=== PATIENT | female | born 1965 | race African-American/Black ===

== ENCOUNTER 2020-02-11 02:03 | Emergency (ER) | payer MEDICARE, MEDICAID, SELFPAY ==
[2020-02-11 02:06] VITALS: BP 144/81; PULSE 70; RESP 18; TEMP 36.8; O2SAT 100; BMI 26.6
[2020-02-11] MEDS: 0.9% Normal Saline 1,000 ML 1000 ML IV (02:19)
[2020-02-11] MEDS: Ondansetron 4 MG/2 ML Vial IV (02:22)
[2020-02-11] MEDS: Morphine 4 MG/ML Syringe IV (02:22)
[2020-02-11 02:39] LABS: Absolute Lymphocyte Count 1.89 X10^3/uL (0.83-4.51); Absolute Neutrophil Count 6.3 X10^3/uL (2.0-7.7); Basophil# 0.02 X10^3/uL; Basophil% 0.2 % (0-1); Eosinophil# 0.08 X10^3/uL; Eosinophils% 0.9 % (0-5); Hematocrit 39.7 % (37-47); Hemoglobin 12.8 g/dL (12.0-15.0); Lymphocyte # 1.89 X10^3/ul (4.0); Lymphocyte % 21.6 % (19-41); Mean Corp Hgb Conc 32.2 g/dL (32-36); Mean Corpuscular Hgb 30.8 pg (27.0-32.0); Mean Corpuscular Volume 95.7 fL (81-99); Mean Platelet Vol. 9.1 fl (6.2-12.0); Monocyte# 0.46 X10^3/uL; Monocyte% 5.3 % (0-10); NRBC Flagged by Analyzer 0 % (0-5); Neutrophil # 6.28 X10^3/uL (2.7-7.7); Neutrophil % 71.7 % (47-70); Platelet Count 265 K/mm3 (150-450); RBC Distribution Width CV 13.2 % (11.6-14.6); Red Blood Count 4.15 M/mm3 (4.2-5.4); White Blood Count 8.8 K/mm3 (4.4-11.0)
[2020-02-11 02:42] LABS: ALB/GLOB Ratio 1.1 RATIO (0.9-2.4); AST(SGOT) 19 U/L (15-37); Alanine Aminotransfer ALT/SGPT 20 U/L (13-56); Albumin, Serum 3.8 g/dL (3.2-5.0); Alkaline Phosphatase 67 U/L (45-117); Anion Gap 7 (5-15); BUN 9 mg/dL (7-18); BUN/Creat Ratio 10.4 RATIO (10-20); Calcium,Total 8.6 mg/dL (8.5-10.1); Chloride 108 mmol/L (98-107); Creatinine, Serum 0.86 mg/dL (0.55-1.02); EST Glomerular Filtration Rate 73 mL/min (>60); Est Glom Filt Rate - Afr Amer 88 mL/min (>60); Estimated Creatinine Clearance 78.15 ml/min; Globulin 3.5 g/dL (2.2-4.2); Glucose 93 mg/dL (74-106); Lipase 348 U/L (73-393); Potassium 3.9 mmol/L (3.5-5.1); Protein, Total 7.3 g/dL (6.4-8.2); Sodium Level 140 mmol/L (136-145)
--- NOTE | 2020-02-11 02:48 | ED.DCSUM_ITS ---
- ER Visit Summary Date of Service: 02/11/20 Chief Complaint: Abdominal pain History of Present Illness: The patient is a [address] bowen to. She reports that approximately 2 hours ago she developed abdominal pain, vomiting, and diarrhea. States she is vomited 7-8 times. No blood in her emesis. She had one episode of diarrhea. No blood in her stools or black tarry stools. She reports that she has a diffuse sharp abdominal pain 8/10 severity. Is worsened by sitting up and by vomiting. She reports that her grandson was visiting yesterday and that he has been vomiting as well. Has not been camping out of the country. No possible bad food exposure. Does not drink well water. No recent antibiotic use. Physical Examination: Vitals: Stable. Afebrile. General: Well-nourished and well-developed. Head: Normocephalic atraumatic. Neck: Supple, no lymphadenopathy. No JVD. Nontender. Cardiovascular: Regular rate and rhythm. No murmurs. Respiratory: No respiratory distress. Clear to auscultation bilaterally. Abdominal: Soft, mild diffuse tenderness palpation, nondistended, normal bowel sounds. No guarding, rebound, or peritoneal signs. Back: Nontender. Extremities: Nontender, no edema. Skin: Normal color, no rash. Neurologic: Alert and oriented ?3. Cranial nerves II through XII are intact. Normal strength and sensation. Psych: Normal affect. Test Results: CBC shows 7 neutrophils 72. Chem-7 shows a chloride of 108. LFTs are normal. Lipase is normal. Emergency Department Course and Treatment: Patient was given a dose of morphine and Zofran IV. She was given a liter normal saline. She has not vomited since the Zofran. Treatment Plan: Patient be discharged with Zofran and Bentyl. Instructed to follow-up with her primary care physician 1 to 2 days if not improving. Return to the emergency department for any worsening symptoms. Disposition: To home in improved and stable condition. Impression: 1. Vomiting/diarrhea. This note was generated with [employer] dictation software. It may contain incorrect words, spelling, and punctuation that were not noted in review of the chart prior to signing ED Disposition - Plan for ED Patient: Instructions: ED Vomiting and Diarrhea Nonspecific Adult Prescriptions: Dicyclomine HCl [Bentyl] 20 mg PO TIDAC #20 capsule Ondansetron [Zofran Odt] 4 mg PO Q8H PRN PRN #10 tablet PRN Reason: Nausea Referrals: Jennifer Jones MD [Primary Care Provider] - 1-2 Days if not improving
[2020-02-11 03:58] VITALS: BP 124/68; PULSE 72; RESP 16; O2SAT 97
== END 2020-02-11 03:58 | disposition home or self-care (01) ==
PROVIDERS: Emergency Provider Emergency Medicine; PCP Internal Medicine
DX: R11.2 Nausea with vomiting, unspecified (principal); R19.7 Diarrhea, unspecified; M19.90 Unspecified osteoarthritis, unspecified site; Z72.0 Tobacco use
CPT/HCPCS: 80053; 83690; 85025; 96361; 96374; 96375; 99285; J7030; J2405

== ENCOUNTER 2020-07-24 19:07 | Emergency (ER) | payer MEDICARE, MEDICAID, SELFPAY ==
[2020-07-24 19:08] VITALS: BP 131/82; PULSE 72; RESP 18; TEMP 36.2; O2SAT 100; BMI 28.8
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
--- NOTE | 2020-07-24 19:17 | EKG12_ITS ---
Test Reason : DYSRHYTHMIA Blood Pressure : / mmHG Vent. Rate : 062 BPM Atrial Rate : 062 BPM P-R Int : 172 ms QRS Dur : 090 ms QT Int : 422 ms P-R-T Axes : 071 048 055 degrees QTc Int : 428 ms Normal sinus rhythm Normal ECG Confirmed by DALY BENITEZ, ELBA ([id number]), general expeditor KAREN THORNTON ([id number]) on 07/28/2020 12:56:28 PM Referred By: ABBY Confirmed By:ELBA KAUFFMAN MD
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
[2020-07-24] MEDS: 0.9% Normal Saline 1,000 ML 150 ML IV (19:31)
[2020-07-24 19:43] LABS: Anion Gap 4 (5-15); BUN 15 mg/dL (7-18); BUN/Creat Ratio 16.1 RATIO (10-20); Calcium,Total 8.7 mg/dL (8.5-10.1); Chloride 106 mmol/L (98-107); Creatinine, Serum 0.93 mg/dL (0.55-1.02); EST Glomerular Filtration Rate 66 mL/min (>60); Est Glom Filt Rate - Afr Amer 80 mL/min (>60); Estimated Creatinine Clearance 68.95 ml/min; Glucose 81 mg/dL (74-106); Sodium Level 140 mmol/L (136-145)
[2020-07-24 20:10] LABS: Absolute Lymphocyte Count 3.76 X10^3/uL (0.83-4.51); Basophil# 0.02 X10^3/uL; Basophil% 0.3 % (0-1); Eosinophil# 0.23 X10^3/uL; Erythrocyte Sedimentation Rate 25 mm/hr (0-30); Hematocrit 38.1 % (37-47); Hemoglobin 12.3 g/dL (12.0-15.0); Lymphocyte # 3.76 X10^3/ul (4.0); Lymphocyte % 49.6 % (19-41); Mean Corp Hgb Conc 32.3 g/dL (32-36); Mean Corpuscular Hgb 31.1 pg (27.0-32.0); Mean Corpuscular Volume 96.2 fL (81-99); Mean Platelet Vol. 9.2 fl (6.2-12.0); Monocyte# 0.51 X10^3/uL; Monocyte% 6.7 % (0-10); NRBC Flagged by Analyzer 0 % (0-5); Neutrophil # 3.04 X10^3/uL (2.7-7.7); Neutrophil % 40.1 % (47-70); Platelet Count 303 K/mm3 (150-450); RBC Distribution Width CV 13.1 % (11.6-14.6); RBC Distribution Width SD 46.6 fl (35.1-43.9); Red Blood Count 3.96 M/mm3 (4.2-5.4); White Blood Count 7.6 K/mm3 (4.4-11.0)
[2020-07-24 21:17] VITALS: BP 130/75; PULSE 56; RESP 16; O2SAT 99
[2020-07-24 22:26] VITALS: BP 140/61; PULSE 64; RESP 18; O2SAT 99
== END 2020-07-24 22:27 | disposition home or self-care (01) ==
PROVIDERS: Emergency Provider Emergency Medicine; PCP Internal Medicine
DX: R42 Dizziness and giddiness (principal); R51 Headache; R55 Syncope and collapse; F25.9 Schizoaffective disorder, unspecified; F17.200 Nicotine dependence, unspecified, uncomplicated; Z79.899 Other long term (current) drug therapy
CPT/HCPCS: 70450; 70498; 80048; 85025; 85652; 93005; 96360; 96361; 99284; J7030; Q9967; A4216

== ENCOUNTER 2020-11-14 05:08 | Emergency (ER) | payer MEDICARE, MEDICAID, SELFPAY ==
[2020-11-14 05:08] VITALS: BP 136/84; PULSE 54; RESP 24; TEMP 35.9; O2SAT 97; BMI 32.4
[2020-11-14 05:17] VITALS: O2SAT 97
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
[2020-11-14 06:30] VITALS: BP 118/74; PULSE 62; RESP 15; O2SAT 98
== END 2020-11-14 07:03 | disposition home or self-care (01) ==
PROVIDERS: Emergency Provider Emergency Medicine; PCP Internal Medicine
DX: S10.91XA Abrasion of unspecified part of neck, initial encounter (principal); S60.419A Abrasion of unspecified finger, initial encounter; G40.909 Epilepsy, unspecified, not intractable, without status epilepticus; F25.9 Schizoaffective disorder, unspecified; Z79.899 Other long term (current) drug therapy; F17.200 Nicotine dependence, unspecified, uncomplicated; V47.0XXA Car driver injured in collision with fixed or stationary object in nontraffic accident, initial encounter; Y93.I9 Activity, other involving external motion; Y92.410 Unspecified street and highway as the place of occurrence of the external cause; Y99.8 Other external cause status
CPT/HCPCS: 70450; 72125; 99284

== ENCOUNTER 2021-10-30 22:20 | Observation (INO) | payer MEDICARE, MEDICAID, SELFPAY ==
[2021-10-30 22:22] VITALS: BP 148/80; PULSE 55; RESP 18; TEMP 36.1; O2SAT 96; BMI 33.6
[2021-10-30 22:30] LABS: Bedside Glucose 166 mg/dL (70-110)
--- NOTE | 2021-10-30 22:31 | CT_ITS ---
EXAM: CT HEAD WITHOUT INTRAVENOUS CONTRAST CLINICAL INDICATION: Weakness TECHNIQUE: Multiple axial images were obtained of the head without intravenous contrast. CTDIvol = ( 44.99 ) mGy, DLP = ( 745.49 ) mGycm This CT exam was performed using one or more of the following dose reduction techniques: automated exposure control, adjustment of the mA and/or kV according to patient size, and/or use of iterative reconstruction technique. This report was created using [employer] report generation technology. COMPARISON: None. FINDINGS: BRAIN AND EXTRA-AXIAL SPACES: Unremarkable. No intra- or extra-axial hemorrhage. No evidence of acute infarct. No intracranial mass or mass effect. There is preservation of the way/white matter interface. Posterior fossa structures are unremarkable. Ventricles are appropriate for age. No hydrocephalus. Basal cisterns are patent. BONES/JOINTS: Unremarkable. No discrete lytic or blastic abnormalities. SINUSES: Mild scattered paranasal sinus mucosal thickening. MASTOID AIR CELLS: Unremarkable. Clear. ORBITS: Visualized globes, extraocular muscles, optic nerves and retrobulbar fat appear unremarkable. CT/Brain/Head without Contrast IMPRESSION: No acute findings in the head/brain. Electronically Signed: Chirag Garvin MD at 22:53 EST Tel , Service support ,
--- NOTE | 2021-10-30 22:31 | EKG12_ITS ---
Test Reason : DYSRHYTHMIA Blood Pressure : / mmHG Vent. Rate : 058 BPM Atrial Rate : 058 BPM P-R Int : 214 ms QRS Dur : 096 ms QT Int : 412 ms P-R-T Axes : 069 041 065 degrees QTc Int : 404 ms Sinus bradycardia with 1st degree A-V block Nonspecific T wave abnormality Abnormal ECG Confirmed by ZHENG BENITEZ, HILARY ([id number]), make up editor KAREN THORNTON ([id number]) on 11/02/2021 11:06:49 AM Referred By: AGGIE Confirmed By:HILARY CALZADA MD
--- NOTE | 2021-10-30 22:34 | EX.ED.DYSGE1 ---
HPI History of Present Illness Chief Complaint: Weakness Informant: EMS Limited: other (Patient is somnolent but arousable) Onset/Context/Timing Onset: Today Context: Sudden Onset Timing: Continuous Quality: Weak Location: Generalized Narrative Narrative: Patient presents with generalized weakness that began tonight. EMS was called because of a possible seizure. Upon EMS arrival, patient was no longer seizing. They noted her blood sugar to be in the 60s. They administered oral glucose. Patient was able to swallow. Upon arrival to the emergency department patient's blood sugar was 166. Patient is still somnolent and does not answer questions. EMS reports her weakness is generalized. [facility] Medical History unable to obtain unable to obtain Home Medications buspirone 15 mg PO BID 07/24/20 [History Last Taken Unknown] docusate sodium 100 mg PO BID 07/24/20 [History Last Taken 07/23/20] famotidine 20 mg PO DAILY 07/24/20 [History Last Taken 07/23/20] hydroxyzine HCl 50 mg PO DAILY 07/24/20 [History Last Taken Unknown] melatonin 5 mg PO QHS 07/24/20 [History Last Taken Unknown] pantoprazole 40 mg PO DAILY 07/24/20 [History Last Taken 07/23/20] sertraline 200 mg PO DAILY 07/24/20 [History Last Taken 07/23/20] ziprasidone HCl 40 mg PO DAILY 07/24/20 [History Last Taken 07/23/20] Clonazepam 1 tab PO QHS 11/14/20 [History Last Taken Unknown] Pramipexole Di-Hcl [Pramipexole Dihydrochloride] 1 mg PO DAILY 11/14/20 [History Last Taken Unknown] amlodipine 1 tab PO DAILY 11/14/20 [History Last Taken Unknown] lacosamide 150 mg PO BID 11/14/20 [History Last Taken Unknown] gabapentin 300 mg PO TID 10/30/21 [History Last Taken Unknown] oxcarbazepine 600 mg PO BID 10/30/21 [History Last Taken Unknown] Allergy/AdvReac Type Severity Reaction Status Date / Time No Known Allergies Allergy Verified 11/14/20 05:12 Surgical History unable to obtain unable to obtain Social History Smoking Status: Current every day smoker tobacco type: cigarettes ROS ROS ED Review of Systems ROS Unobtainable: due to mental condition EXAM Physical Exam Const Vital Signs: 10/30/21 22:22 10/30/21 22:30 10/30/21 22:39 Temperature 97.0 F L Temperature Source Temporal Pulse Rate 55 L Respiratory Rate 18 Respiratory Effort Normal Non-Labored Respiratory Pattern Normal Blood Pressure 148/80 H 146/70 H Blood Pressure Mean 102 95 Pulse Ox 96 97 Oxygen Delivery Method Room Air Room Air Oxygen Flow Rate (L/min) 10/30/21 23:57 10/31/21 00:04 10/31/21 00:08 Temperature Temperature Source Pulse Rate 49 L 35 L 47 L Respiratory Rate 18 14 Respiratory Effort Respiratory Pattern Blood Pressure 93/56 L 147/72 H Blood Pressure Mean 68 97 Pulse Ox 98 100 Oxygen Delivery Method Room Air Nasal Cannula Oxygen Flow Rate (L/min) 2 Positive well nourished and well developed General Appearance ED: well developed HEENT Reports moist mucous membranes Eyes EOMs intact bilaterally Neck supple and no JVD Resp normal respiratory effort and clear to auscultation bilaterally Cardio regular rhythm Rate: bradycardia GI non-tender Palpation: soft Neuro CN's II-XII intact bilaterally and no sensory deficits noted Neuro Narrative: Patient is somnolent but responds to verbal stimuli. Motor Exam: strength 5/5 throughout MDM MDM MDM Narrative Medical decision making narrative: EKG was obtained. On my interpretation it showed a sinus bradycardia with a first-degree AV block with a rate of 58. MI interval was 214. QRS interval was normal. QTc interval was normal. [place] was normal. There is some T wave inversion in leads V3, V4, V5 and some T wave flattening in V6 which is new compared to previous EKG dated 07/24/2020. CT scan of the brain was obtained. There is no acute intracranial abnormality. CBC and comprehensive metabolic profile were within normal limits. Anion gap was normal. Arterial blood gas was essentially within normal limits. TSH was normal. PT was INR and PTT were normal. Lactate was normal. Initial high-sensitivity troponin was normal at 7. 2-hour repeat high-sensitivity troponin was obtained and is pending. Ammonia level was normal. Urinalysis shows leukocyte Estrace of 100 with 5-10 white blood cells and 4+ bacteria. There were positive nitrates. Urine culture was ordered. Patient was started on Rocephin. Patient is more responsive to verbal stimuli. Patient denies taking any extra medications. Patient denies any intent to hurt herself. Patient's heart rate dropped into the 30s and she started having some PVCs. Because of this, patient was given 0.5 mg of atropine. Patient's heart rate improved back into the 50s. Lab Data Labs: Laboratory Results - last 24 hr 10/30/21 10/30/21 10/30/21 22:17 22:17 22:17 WBC 10.9 RBC 4.28 Hgb 13.1 Hct 40.7 MCV 95.1 MCH 30.6 MCHC 32.2 RDW Std Deviation 48.0 H RDW Coeff of Scottie 13.7 Plt Count 348 MPV 9.2 Immature Gran % (Auto) 0.400 Neut % (Auto) 52.6 Lymph % (Auto) 38.1 Brooks % (Auto) 5.1 Eos % (Auto) 3.4 Baso % (Auto) 0.4 Absolute Neuts (auto) 5.7 Absolute Lymphs (auto) 4.16 Nucleated RBC % 0 PT INR APTT Sodium 142 Potassium 3.5 Chloride 107 Carbon Dioxide 27.0 Anion Gap 8 BUN 14 Creatinine 0.81 Estim Creat Clear Calc 78.23 Est GFR (MDRD) Af Amer 94 Est GFR (MDRD) Non-Af 77 BUN/Creatinine Ratio 17.2 Glucose 98 Lactic Acid Calcium 8.9 Total Bilirubin 0.30 AST 16 ALT 28 Alkaline Phosphatase 91 Ammonia Troponin I High Sens 7 Total Protein 7.8 Albumin 3.7 Globulin 4.1 Albumin/Globulin Ratio 0.9 TSH 2.34 Urine Color Urine Clarity Urine pH Ur Specific [place] Urine Protein Urine Glucose (UA) Urine Ketones Urine Occult Blood Urine Nitrite Urine Bilirubin Urine Urobilinogen Ur Leukocyte Esterase Urine RBC Urine WBC Ur Squamous Epith Cells Urine Bacteria Urine Mucus POC Glucose 10/30/21 10/30/21 10/30/21 22:24 23:00 23:00 WBC RBC Hgb Hct MCV MCH MCHC RDW Std Deviation RDW Coeff of Scottie Plt Count MPV Immature Gran % (Auto) Neut % (Auto) Lymph % (Auto) Brooks % (Auto) Eos % (Auto) Baso % (Auto) Absolute Neuts (auto) Absolute Lymphs (auto) Nucleated RBC % PT 13.4 INR 1.1 APTT 31.8 Sodium Potassium Chloride Carbon Dioxide Anion Gap BUN Creatinine Estim Creat Clear Calc Est GFR (MDRD) Af Amer Est GFR (MDRD) Non-Af BUN/Creatinine Ratio Glucose Lactic Acid 1.4 Calcium Total Bilirubin AST ALT Alkaline Phosphatase Ammonia Troponin I High Sens Total Protein Albumin Globulin Albumin/Globulin Ratio TSH Urine Color Urine Clarity Urine pH Ur Specific [place] Urine Protein Urine Glucose (UA) Urine Ketones Urine Occult Blood Urine Nitrite Urine Bilirubin Urine Urobilinogen Ur Leukocyte Esterase Urine RBC Urine WBC Ur Squamous Epith Cells Urine Bacteria Urine Mucus POC Glucose 166 H 10/30/21 10/30/21 23:05 23:35 WBC RBC Hgb Hct MCV MCH MCHC RDW Std Deviation RDW Coeff of Scottie Plt Count MPV Immature Gran % (Auto) Neut % (Auto) Lymph % (Auto) Brooks % (Auto) Eos % (Auto) Baso % (Auto) Absolute Neuts (auto) Absolute Lymphs (auto) Nucleated RBC % PT INR APTT Sodium Potassium Chloride Carbon Dioxide Anion Gap BUN Creatinine Estim Creat Clear Calc Est GFR (MDRD) Af Amer Est GFR (MDRD) Non-Af BUN/Creatinine Ratio Glucose Lactic Acid Calcium Total Bilirubin AST ALT Alkaline Phosphatase Ammonia 15.0 Troponin I High Sens Total Protein Albumin Globulin Albumin/Globulin Ratio TSH Urine Color Yellow Urine Clarity Clear Urine pH 5.0 Ur Specific [place] 1.020 Urine Protein 15 H Urine Glucose (UA) Normal Urine Ketones 5 H Urine Occult Blood 150 H Urine Nitrite Positive H Urine Bilirubin Negative Urine Urobilinogen Normal Ur Leukocyte Esterase 100 H Urine RBC 0-5 SEEN Urine WBC 5-10 SEEN Ur Squamous Epith Cells 0-5 SEEN Urine Bacteria 4+ Urine Mucus 0 SEEN POC Glucose ABG Data ABG results: ABG 10/30/21 23:13 Specimen Type ART Sample Site L Radial pH 7.37 Bicarbonate Actual 26.2 H Total CO2 28 Base Excess 1 O2 Saturation 92 L ABG pCO2 45.9 H ABG pO2 67 L Mansoor Test Positive O2 Delivery Device Cannula Liter Flow 2.0 Radiography Diagnostic Testing: Clinical Impression(s) from Imaging Studies Brain CT 10/30/21 22:31 IMPRESSION: No acute findings in the head/brain. Electronically Signed: Chirag Garvin MD at 22:53 EST Tel , Service support , EKG Initial EKG: Attestation: I personally reviewed and interpreted this EKG as follows: Interpretation: Sinus Bradycardia (58) and Non-Specific ST Changes (V3 through V6) Prior EKG tracings: available for review Prior: Changed (07/24/2020) Discharge Plan Triage Chief Complaint: Weakness Other Complaint: Fatigue Hypoglycemia ED Provider: José Antonio Mays Dx/Rx/DC Orders Prescriptions: No Action sertraline 100 MG tablet 200 mg PO DAILY RF: 0 hydroxyzine HCl 50 MG tablet 50 mg PO DAILY RF: 0 famotidine 20 MG tablet 20 mg PO DAILY RF: 0 pantoprazole 40 MG tablet 40 mg PO DAILY RF: 0 docusate sodium 100 MG capsule 100 mg PO BID RF: 0 ziprasidone HCl 40 mg capsule 40 mg PO DAILY RF: 0 buspirone 15 MG tablet 15 mg PO BID RF: 0 melatonin 5 MG tablet 5 mg PO QHS RF: 0 amlodipine 2.5 MG tablet 1 tab PO DAILY RF: 0 lacosamide 150 MG tablet 150 mg PO BID RF: 0 Clonazepam 0.5 MG tablet 1 tab PO QHS RF: 0 Pramipexole Di-Hcl [Pramipexole Dihydrochloride] 1 MG tablet 1 mg PO DAILY RF: 0 oxcarbazepine 300 mg tablet 600 mg PO BID RF: 0 gabapentin 300 mg capsule 300 mg PO TID RF: 0 Primary Care Provider: Jennifer Jones
[2021-10-30 22:39] VITALS: BP 146/70; O2SAT 97
[2021-10-30 22:42] LABS: Absolute Lymphocyte Count 4.16 X10^3/uL (0.83-4.51); Absolute Neutrophil Count 5.7 X10^3/uL (2.0-7.7); Basophil# 0.04 X10^3/uL; Basophil% 0.4 % (0-1); Eosinophil# 0.37 X10^3/uL; Eosinophils% 3.4 % (0-5); Hematocrit 40.7 % (37-47); Hemoglobin 13.1 g/dL (12.0-15.0); Lymphocyte # 4.16 X10^3/ul (0.83-4.51); Lymphocyte % 38.1 % (19-41); Mean Corp Hgb Conc 32.2 g/dL (32-36); Mean Corpuscular Hgb 30.6 pg (27.0-32.0); Mean Corpuscular Volume 95.1 fL (81-99); Mean Platelet Vol. 9.2 fl (6.2-12.0); Monocyte# 0.56 X10^3/uL; Monocyte% 5.1 % (0-10); NRBC Flagged by Analyzer 0 % (0-5); Neutrophil # 5.74 X10^3/uL (2.7-7.7); Neutrophil % 52.6 % (47-70); Platelet Count 348 K/mm3 (150-450); RBC Distribution Width CV 13.7 % (11.6-14.6); Red Blood Count 4.28 M/mm3 (4.2-5.4); White Blood Count 10.9 K/mm3 (4.4-11.0)
[2021-10-30] MEDS: Naloxone 2 MG/2 ML Syringe IV (22:48)
[2021-10-30 23:04] LABS: ALB/GLOB Ratio 0.9 RATIO (0.9-2.4); AST(SGOT) 16 U/L (15-37); Alanine Aminotransfer ALT/SGPT 28 U/L (13-56); Albumin, Serum 3.7 g/dL (3.2-5.0); Alkaline Phosphatase 91 U/L (45-117); Anion Gap 8 (5-15); BUN 14 mg/dL (7-18); BUN/Creat Ratio 17.2 RATIO (10-20); Calcium,Total 8.9 mg/dL (8.5-10.1); Chloride 107 mmol/L (98-107); Creatinine, Serum 0.81 mg/dL (0.55-1.02); EST Glomerular Filtration Rate 77 mL/min (>60); Est Glom Filt Rate - Afr Amer 94 mL/min (>60); Estimated Creatinine Clearance 78.23 ml/min; Globulin 4.1 g/dL (2.2-4.2); Glucose 98 mg/dL (74-106); Potassium 3.5 mmol/L (3.5-5.1); Protein, Total 7.8 g/dL (6.4-8.2); Sodium Level 142 mmol/L (136-145); Troponin-I HS 7 pg/mL (3.0-54.0)
[2021-10-30 23:15] LABS: Mucous, Urine 0 SEEN /hpf (<or=2+)
[2021-10-30 23:20] LABS: Allen Test Positive; Base Excess 1 mmol/L (-2 to +2); Bicarbonate 26.2 mmol/L (22-26); Blood Gas Specimen Type ART; O2 Delivery Device Cannula; PO2 67 mmHG (75-100); SITE L Radial; SO2 92 % (95-99); Total Carbon Dioxide 28 mmol/L; pCO2 45.9 mmHg (35-45); pH 7.37 (7.35-7.45)
--- NOTE | 2021-10-30 23:20 | ED.RN ---
Pt responds to painful stimulus only, continuous cardiac monitoring. Pt did not respond when straight cath or arterial blood gas were performed, physician aware. No change after narcan was administered. Pt brother arrived however does not know any history other than family thought pt was having seizures.
[2021-10-30 23:30] LABS: International Normalized Ratio 1.1; Prothrombin Time (Protime)PT. 13.4 SECONDS (11.7-14.9)
[2021-10-30 23:31] LABS: Partial Thromboplast Time 31.8 Seconds (24.1-36.2)
[2021-10-30 23:32] LABS: Color, Urine Yellow (Yellow); Glucose, Dipstick Normal (Normal); Ketone-Dipstick 5 mg/dl (Negative); Leukocyte Esterase-Dipstick 100 /ul (Negative); Nitrite-Dipstick Positive (Negative); Occult Blood-Urine 150 /ul (Negative); Protein-Dipstick 15 mg/dl (Negative); Urine Bilirubin Dipstick Negative (Negative); Urine Clarity Clear (Clear); Urine Urobilinogen Normal (Normal)
[2021-10-30 23:36] LABS: Lactic Acid 1.4 mmol/L (0.4-1.9)
[2021-10-30 23:41] LABS: Bacteria 4+ /hpf (None Seen); Red Blood Cells-Urine 0-5 SEEN /hpf (0-5); Squamous Epithelial Cells - UA 0-5 SEEN /hpf (5-10); White Blood Cells 5-10 SEEN /hpf (0-5)
[2021-10-30 23:57] VITALS: BP 93/56; PULSE 49; RESP 18; O2SAT 98
[2021-10-31] VITALS (13 sets, daily range): BP systolic 91–151; BP diastolic 53–151; PULSE 35–61; RESP 14–16; TEMP 36.1–36.9; O2SAT 96–100; BMI 33.6; BMI 30.7
[2021-10-31] MEDS: Atropine Sulfate 1 MG/10 ML Syringe 0.5 MG IV (00:06)
[2021-10-31 00:08] LABS: Thyroid Stim Hormone (TSH) 2.34 uIU/mL (0.358-3.74)
[2021-10-31] MEDS: Ceftriaxone 1 GM/50 ML BAG IV (00:15)
[2021-10-31 00:52] LABS: Troponin-I HS 5 pg/mL (3.0-54.0)
--- NOTE | 2021-10-31 01:13 | HP.PCM.HOS_ITS ---
HPI - General General Date of Admission: 10/31/21 Date of Service: 10/31/21 Chief Complaint: Mental status change, generalized weakness HPI Narrative RACHEAL DELVALLE, is a 56 F who presents to the emergency room at [facility] after being transported from her home due to weakness and mental status change, history was obtained from the patient's mother who I talked to by phone, patient was evidently at work at [employer] when she had some episodes of unresponsiveness that lasted a few minutes in length. She came home from work and the mother stated that she had further episodes where she became lethargic and fell asleep for several minutes, there was no seizure activity witnessed at home, it is unknown whether there was any seen at work. Patient has history of bipolar disorder and schizoaffective disorder, she does not have a history of seizure disorder. Labs were obtained in the emergency room, patient's blood glucose was initially 68 by squad, in the ER here the blood glucose was 98, the remainder of the patient's chemistry panel was also normal. Patient had a normal CBC, troponin was unremarkable, blood gases on 2 L showed a PCO2 of 45.9 and a PO2 of 67, pH was 7.37. Patient was noted to be bradycardic in the 40s and was given IV atropine by the ER physician. EKG shows a sinus bradycardia in the 50s with no evidence of ischemic changes. Patient did not have a chest x-ray at this time, it was ordered but it has not been performed. Patient had a brain CT performed which was unremarkable. Patient responded to painful stimuli and the ER physician stated that she was able to say yes and no to a few questions but then fell back to sleep. Patient will be placed in observation status on PCU, I will review her home medications and I might electively try to hold some of her medications such as gabapentin, she will need EEG performed. [facility] Medical History unable to obtain Home Medications buspirone 15 mg PO BID 07/24/20 [History Last Taken Unknown] docusate sodium 100 mg PO BID 07/24/20 [History Last Taken 07/23/20] famotidine 20 mg PO DAILY 07/24/20 [History Last Taken 07/23/20] hydroxyzine HCl 50 mg PO DAILY 07/24/20 [History Last Taken Unknown] melatonin 5 mg PO QHS 07/24/20 [History Last Taken Unknown] pantoprazole 40 mg PO DAILY 07/24/20 [History Last Taken 07/23/20] sertraline 200 mg PO DAILY 07/24/20 [History Last Taken 07/23/20] ziprasidone HCl 40 mg PO DAILY 07/24/20 [History Last Taken 07/23/20] Clonazepam 1 tab PO QHS 11/14/20 [History Last Taken Unknown] Pramipexole Di-Hcl [Pramipexole Dihydrochloride] 1 mg PO DAILY 11/14/20 [History Last Taken Unknown] amlodipine 1 tab PO DAILY 11/14/20 [History Last Taken Unknown] lacosamide 150 mg PO BID 11/14/20 [History Last Taken Unknown] gabapentin 300 mg PO TID 10/30/21 [History Last Taken Unknown] oxcarbazepine 600 mg PO BID 10/30/21 [History Last Taken Unknown] Allergy/AdvReac Type Severity Reaction Status Date / Time No Known Allergies Allergy Verified 11/14/20 05:12 Surgical History unable to obtain Social History Smoking Status: Current every day smoker tobacco type: cigarettes ROS ROS Narrative Review of systems was unobtainable due to patient's lethargy/encephalopathy Review of Systems ROS Unobtainable: due to encephalopathy and due to mental status Vital Signs Vital Signs Vital Signs: 10/30/21 22:22 10/30/21 22:30 10/30/21 22:39 Temperature 97.0 F L Temperature Source Temporal Pulse Rate 55 L Respiratory Rate 18 Respiratory Effort Normal Non-Labored Respiratory Pattern Normal Blood Pressure 148/80 H 146/70 H Blood Pressure Mean 102 95 Pulse Ox 96 97 Oxygen Delivery Method Room Air Room Air Oxygen Flow Rate (L/min) 10/30/21 23:57 10/31/21 00:04 10/31/21 00:08 Temperature Temperature Source Pulse Rate 49 L 35 L 47 L Respiratory Rate 18 14 Respiratory Effort Respiratory Pattern Blood Pressure 93/56 L 147/72 H Blood Pressure Mean 68 97 Pulse Ox 98 100 Oxygen Delivery Method Room Air Nasal Cannula Oxygen Flow Rate (L/min) 2 10/31/21 00:46 10/31/21 00:56 10/31/21 01:01 Temperature 97.0 F L 97.3 F L Temperature Source Temporal Temporal Pulse Rate 47 L 48 L Respiratory Rate 14 15 Respiratory Effort Respiratory Pattern Blood Pressure 147/72 H 91/53 L Blood Pressure Mean 97 65 Pulse Ox 100 98 Oxygen Delivery Method Nasal Cannula Room Air Room Air Oxygen Flow Rate (L/min) 2 Weight Weight: 100.3 kg Body Mass Index (BMI) 33.6 Physical Exam Const no apparent distress, average body habitus and healthy appearing Constitutional Narrative: Patient is somnolent, she only responds to painful stimuli, she does not reply to any verbal stimuli from this examiner General Appearance: well kempt and well developed Orientation / Consciousness: awake, oriented to person, oriented to place and oriented to time HEENT normocephalic, head/scalp atraumatic and moist oral mucous membranes Neck nuchal rigidity, supple, no JVD, thyroid normal and no carotid bruits General: trachea midline Resp normal respiratory effort, no retractions, no use of accessory muscles and clear to auscultation bilaterally Auscultation: Negative for rales, rhonchi or wheezes Cardio regular rate, regular rhythm, S1 normal heart sound, S2 normal heart sound, no murmurs, no rub and no gallops Cardio Narrative: Patient has bradycardia with a heart rate of approximately 48 GI normal to inspection, nondistended, normoactive bowel sounds, soft to palpation, non-tender and non-distended Extremity no clubbing, cyanosis or edema Skin no rashes or lesions noted and skin turgor normal General Skin Exam: no breakdown Neuro CN's II-XII intact bilaterally and no sensory deficits noted Psych thought process normal Psych Narrative: Patient is asleep and only responds to painful stimuli, she does not respond to verbal stimuli Results Lab / Micro Data Result Diagrams: 10/30/21 22:17 10/30/21 22:17 Labs: Laboratory Results - last 24 hr 10/30/21 22:17: WBC 10.9, RBC 4.28, Hgb 13.1, Hct 40.7, MCV 95.1, MCH 30.6, MCHC 32.2, RDW Std Deviation 48.0 H, RDW Coeff of Scottie 13.7, Plt Count 348, MPV 9.2, Immature Gran % (Auto) 0.400, Neut % (Auto) 52.6, Lymph % (Auto) 38.1, [place] % (Auto) 5.1, Eos % (Auto) 3.4, Baso % (Auto) 0.4, Absolute Neuts (auto) 5.7, Absolute Lymphs (auto) 4.16, Nucleated RBC % 0 10/30/21 22:17: Sodium 142, Potassium 3.5, Chloride 107, Carbon Dioxide 27.0, Anion Gap 8, BUN 14, Creatinine 0.81, Estim Creat Clear Calc 78.23, Est GFR (MDRD) Af Amer 94, Est GFR (MDRD) Non-Af 77, BUN/Creatinine Ratio 17.2, Glucose 98, Calcium 8.9, Total Bilirubin 0.30, AST 16, ALT 28, Alkaline Phosphatase 91, Troponin I High Sens 7, Total Protein 7.8, Albumin 3.7, Globulin 4.1, Albumin/Globulin Ratio 0.9 10/30/21 22:17: TSH 2.34 10/30/21 22:24: POC Glucose 166 H 10/30/21 23:00: PT 13.4, INR 1.1, APTT 31.8 10/30/21 23:00: Lactic Acid 1.4 10/30/21 23:05: Urine Color Yellow, Urine Clarity Clear, Urine pH 5.0, Ur Specific [place] 1.020, Urine Protein 15 H, Urine Glucose (UA) Normal, Urine Ketones 5 H, Urine Occult Blood 150 H, Urine Nitrite Positive H, Urine Bilirubin Negative, Urine Urobilinogen Normal, Ur Leukocyte Esterase 100 H, Urine RBC 0-5 SEEN, Urine WBC 5-10 SEEN, Ur Squamous Epith Cells 0-5 SEEN, Urine Bacteria 4+, Urine Mucus 0 SEEN 10/30/21 23:35: Ammonia 15.0 10/31/21 00:15: Troponin I High Sens 5 ABG Data ABG results: ABG 10/30/21 23:13 Specimen Type ART Sample Site L Radial pH 7.37 Bicarbonate Actual 26.2 H Total CO2 28 Base Excess 1 O2 Saturation 92 L ABG pCO2 45.9 H ABG pO2 67 L Mansoor Test Positive O2 Delivery Device Cannula Liter Flow 2.[address] 10/30/21 22:31 IMPRESSION: No acute findings in the head/brain. Electronically Signed: Chirag Garvin MD at 22:53 EST Tel , Service support , Assessment & Plan Assessment/Plan (1) Altered mental status: PLAN: 1. Mental status change/encephalopathy-possible seizure disorder- patient will be placed in observation status on PCU, I will review her medications I may decide to hold some of her medications that have a sedative properties such as gabapentin, she will need an EEG. #2 acute cystitis-patient will be placed on IV Rocephin #3 schizoaffective disorder-I will review the patient's medications, according to the patient's mother who she lives with, she believes that the patient is compliant with her medications, she states that the patient has not been in a mental hospital for quite some time. #4 sinus bradycardia-etiology unclear-patient will be placed in observation status on PCU and will be monitored with telemetry. #5 hypoxia-etiology unclear, patient will have a chest x-ray performed, I will order D-dimer on the patient. #6 hypertension-it appears the patient may be on amlodipine, this will be continued Charges/Coding Visit Charges OBSV E&M: 60372 Initial observation care L3
--- NOTE | 2021-10-31 01:20 | RAD_ITS ---
EXAM: XR CHEST, 1 VIEW CLINICAL INDICATION: Hypoxia TECHNIQUE: Frontal view of the chest. This report was created using dotSyntax report generation technology. COMPARISON: None. FINDINGS: LUNGS AND PLEURAL SPACES: Ill-defined opacity involving the right lower lung. Consider pneumonia in the appropriate clinical setting. No significant pleural effusion or pneumothorax. HEART: No cardiomegaly. No mediastinal enlargement. Trachea is unremarkable. Fullness of the right hilar region may represent reactive adenopathy. MEDIASTINUM: See above. BONES/JOINTS: Lower cervical spinal fusion hardware identified without gross complication. No suspicious lytic or sclerotic lesions of bone. SOFT TISSUES: Unremarkable. RAD/Chest 1 View (Portable) IMPRESSION: Ill-defined opacity involving the right lower lung. Consider pneumonia in the appropriate clinical setting. Electronically Signed: Chirag Garvin MD at 1:55 EST Tel , Service support ,
--- NOTE | 2021-10-31 01:21 | ED.RN ---
PT is more alert. Blames her decreased alertness to her having a seizure. PT states that's what happens when she has a seizure. PT is a little upset that she is being admitted. She did ask if she was going to miss work tomorrow. I said she would. PT works at [employer] and has worked there 2 years come November.
--- NOTE | 2021-10-31 02:23 | PCS.PANDOC ---
PANDEMIC DOCUMENTATION INITIATED: Date: 06/29/2021 Time: 190
[2021-10-31] MEDS: 0.9% Normal Saline 1,000 ML 75 ML IV (02:30)
[2021-10-31 03:52] LABS: D-Dimer Quantitative (DVT/PE) 0.42 FEU/ug/m (0.27-0.49)
[2021-10-31] MEDS: amLODIPine 2.5 MG Tablet PO (06:27)
--- NOTE | 2021-10-31 09:29 | PCM.DC ---
Discharge Instructions Diet Discharge Diet: Low fat / Low cholesterol Activity Discharge Activity: Return to Normal Activity Dressing / Incision Call your doctor if you observe: Inability to urinate and Dizziness Follow Up Care Test Results: Test results from this visit will be discussed in further detail at your follow-up appointment, if applicable. Discharge Plan Admission Admit Date/Time: 10/31/21 01:49 Primary Reason for Your Visit: UTI Attending Provider: Donato Wall Primary Care Provider: Jennifer Jones Discharge Orders/Prescriptions Prescriptions: New buspirone 15 mg Tablet 15 mg PO BID Qty: 0 RF: 0 Continued sertraline 100 MG tablet 200 mg PO DAILY RF: 0 hydroxyzine HCl 50 MG tablet 50 mg PO PRN PRN (Reason: Anxiety) RF: 0 famotidine 20 MG tablet 20 mg PO DAILY RF: 0 ziprasidone HCl 40 mg capsule 40 mg PO DAILY RF: 0 amlodipine 2.5 MG tablet 1 tab PO DAILY RF: 0 lacosamide 150 MG tablet 150 mg PO BID RF: 0 Clonazepam 0.5 MG tablet 1 tab PO QHS RF: 0 oxcarbazepine 300 mg tablet 600 mg PO BID RF: 0 gabapentin 300 mg capsule 300 mg PO TID RF: 0 Referrals / Follow Up: Jennifer Jones MD [Primary Care Provider] - Disposition Disposition (needs filled in before D/C Order can be placed): Home, Self Care
--- NOTE | 2021-10-31 09:40 | DS.PCM_ITS ---
Documented by User: SHYANNE Perry 10/31/21 09:55 Providers Date of Admission: 10/31/21 Primary Care Physician: Dr. Jennifer Jones MD Reason For Visit: MENTAL STATUS CHANGE, BRADYCARDIA Diagnosis Discharge Diagnosis (1) Altered mental status: Status: Acute Code(s): R41.82 - Altered mental status, unspecified Medications at Discharge Home Medications famotidine 20 mg PO DAILY 07/24/20 hydroxyzine HCl 50 mg PO PRN PRN 07/24/20 sertraline 200 mg PO DAILY 07/24/20 ziprasidone HCl 40 mg PO DAILY 07/24/20 Clonazepam 1 tab PO QHS 11/14/20 amlodipine 1 tab PO DAILY 11/14/20 lacosamide 150 mg PO BID 11/14/20 gabapentin 300 mg PO TID 10/30/21 oxcarbazepine 600 mg PO BID 10/30/21 buspirone 15 mg PO BID #0 tab 10/31/21 cephalexin 500 mg PO TID 6 Days #18 cap 10/31/21 Hospital Course Operations None Procedures None Summary of Care Provided Minutes Spent on Discharge: 35 Hospital Course: Patient is a 56-year-old female who presented to the ER with altered mental status. Patient reports that she has a bladder stimulator and Patient often does not know when she has a urinary tract infection. urine, pos itive for protein, ketones, blood, nitrate leukocyte Estrace 100s with 5-10 WBCs and 4+ bacteria. Patient received Rocephin IV and will be discharged home with a prescription for Keflex. It was suspected that patient possibly had a seizure however none was witnessed. Patient has a history of seizures and states that she has experienced seizure with infection in the past. Patient will need to f ollow-up with her neurologist. Patient has been alert and oriented since admission to the floor and has had no signs or symptoms of seizure activity. Physical Exam Const alert, oriented x3 and no apparent distress General Appearance: cooperative HEENT normocephalic and head/scalp atraumatic Eyes conjunctivae normal and no scleral icterus Neck supple General: trachea midline Resp normal respiratory effort, normal air movement and clear to auscultation bilaterally Cardio regular rate, regular rhythm, S1 normal heart sound, S2 normal heart sound and peripheral pulses 2+ throughout Rate: bradycardia GI normal to inspection, nondistended, normoactive bowel sounds, soft to palpation and non-tender Extremity normal capillary refill and no clubbing, cyanosis or edema General Extremity: no tenderness to palpation of joints or extremities Skin skin turgor normal General Skin Exam: no breakdown Lesions: no lesions Rashes: no rashes Neuro oriented x3, moves all extremities, no focal motor deficits and no sensory deficits noted Motor Exam: general weakness Psych affect normal Appearance: appropriate Weight / BMI Weight Weight: 207 lb 14.334 oz Body Mass Index (BMI) 30.7 ABG / Lab / Microbiology Data Result Diagrams: 10/30/21 22:17 10/30/21 22:17 Laboratory: Laboratory Results - last 24 hr 10/30/21 22:17: WBC 10.9, RBC 4.28, Hgb 13.1, Hct 40.7, MCV 95.1, MCH 30.6, MCHC 32.2, RDW Std Deviation 48.0 H, RDW Coeff of Scottie 13.7, Plt Count 348, MPV 9.2, Immature Gran % (Auto) 0.400, Neut % (Auto) 52.6, Lymph % (Auto) 38.1, Divide % (Auto) 5.1, Eos % (Auto) 3.4, Baso % (Auto) 0.4, Absolute Neuts (auto) 5.7, Absolute Lymphs (auto) 4.16, Nucleated RBC % 0 10/30/21 22:17: Sodium 142, Potassium 3.5, Chloride 107, Carbon Dioxide 27.0, Anion Gap 8, BUN 14, Creatinine 0.81, Estim Creat Clear Calc 78.23, Est GFR (MDRD) Af Amer 94, Est GFR (MDRD) Non-Af 77, BUN/Creatinine Ratio 17.2, Glucose 98, Calcium 8.9, Total Bilirubin 0.30, AST 16, ALT 28, Alkaline Phosphatase 91, Troponin I High Sens 7, Total Protein 7.8, Albumin 3.7, Globulin 4.1, Alb umin/Globulin Ratio 0.9 10/30/21 22:17: TSH 2.34 10/30/21 22:24: POC Glucose 166 H 10/30/21 23:00: PT 13.4, INR 1.1, APTT 31.8 10/30/21 23:00: Lactic Acid 1.4 10/30/21 23:00: D-Dimer Quant (PE/DVT) 0.42 10/30/21 23:05: Urine Color Yellow, Urine Clarity Clear, Urine pH 5.0, Ur Specific [place] 1.020, Urine Protein 15 H, Urine Glucose (UA) Normal, Urine Ketones 5 H, Urine Occult Blood 150 H, Urine Nitrite Positive H, Urine Bilirubin Negative, Urine Urobilinogen Normal, Ur Leukocyte Esterase 100 H, Urine RBC 0-5 SEEN, Urine WBC 5-10 SEEN, Ur Squamous Epith Cells 0-5 SEEN, Urine Bacteria 4+, Urine Mucus 0 SEEN 10/30/21 23:35: Ammonia 15.0 10/31/21 00:15: Troponin I High Sens 5 ABG: ABG 10/30/21 23:13 Specimen Type ART Sample Site L Radial pH 7.37 Bicarbonate Actual 26.2 H Total CO2 28 Base Excess 1 O2 Saturation 92 L ABG pCO2 45.9 H ABG pO2 67 L Mansoor Test Positive O2 Delivery Device Cannula Liter Flow 2.0 Radiography Diagnostic Testing: Radiology Impression Brain CT 10/30/21 22:31 IMPRESSION: No acute findings in the head/brain. Electronically Signed: Chirag Garvin MD at 22:53 EST Tel , Service support , Chest X-Ray 10/31/21 01:20 IMPRESSION: Ill-defined opacity involving the right lower lung. Consider pneumonia in the appropriate clinical setting. Electronically Signed: Chirag Garvin MD at 1:55 EST Tel , Service support , D/C Instructions Discharge Diet: Low fat / Low cholesterol Call your doctor if you observe: Inability to urinate and Dizziness Meaningful Use Info Meaningful Use Diagnoses (Choose all that apply): None applicable Discharge Plan Admission Admit Date/Time: 10/31/21 01:49 Primary Reason for Your Visit: UTI Attending Provider: Donato Wall Primary Care Provider: Jennifer Jones Discharge Orders/Prescriptions Prescriptions: New buspirone 15 mg Tablet 15 mg PO BID Qty: 0 RF: 0 cephalexin 500 mg capsule 500 mg PO TID 6 Days Qty: 18 RF: 0 Continued sertraline 100 MG tablet 200 mg PO DAILY RF: 0 hydroxyzine HCl 50 MG tablet 50 mg PO PRN PRN (Reason: Anxiety) RF: 0 famotidine 20 MG tablet 20 mg PO DAILY RF: 0 ziprasidone HCl 40 mg capsule 40 mg PO DAILY RF: 0 amlodipine 2.5 MG tablet 1 tab PO DAILY RF: 0 lacosamide 150 MG tablet 150 mg PO BID RF: 0 Clonazepam 0.5 MG tablet 1 tab PO QHS RF: 0 oxcarbazepine 300 mg tablet 600 mg PO BID RF: 0 gabapentin 300 mg capsule 300 mg PO TID RF: 0 Referrals / Follow Up: Jennifer Jones MD [Primary Care Provider] - Disposition Disposition (needs filled in before D/C Order can be placed): Home, Self Care Documented by User: Dr. Donato Wall MD 10/31/21 10:39 Providers Date of Admission: 10/31/21 Reason For Visit: MENTAL STATUS CHANGE, BRADYCARDIA Medications at Discharge Home Medications famotidine 20 mg PO DAILY 07/24/20 hydroxyzine HCl 50 mg PO PRN PRN 07/24/20 sertraline 200 mg PO DAILY 07/24/20 ziprasidone HCl 40 mg PO DAILY 07/24/20 Clonazepam 1 tab PO QHS 11/14/20 amlodipine 1 tab PO DAILY 11/14/20 lacosamide 150 mg PO BID 11/14/20 gabapentin 300 mg PO TID 10/30/21 oxcarbazepine 600 mg PO BID 10/30/21 buspirone 15 mg PO BID #0 tab 10/31/21 cephalexin 500 mg PO TID 6 Days #18 cap 10/31/21 Hospital Course Operations None Summary of Care Provided Hospital Course: This patient was seen in conjunction with SHYANNE Perry . I have independently interviewed and examined the patient and reviewed pertinent historical, laboratory, and other data. Please refer to Yessi Knoble, CARAMEL CUTTER HAND-C note for details of this patient's presentation, findings, and recommendations. I have reviewed Yessi Marie NP-C note and concur with documented findings. In brief, patient is a 76-year-old lady admitted with altered mental status. Patient was found to be hypoglycemic on admission. She was also found to have abnormal urinalysis started on Rocephin and admitted to regular nursing floor. Patient was back to her baseline a day following her admission. She was discharged home on Keflex. She was instructed to follow-up with her primary care physician to call within 3 to 5 days for subsequent follow-up Hospital course; as documented above ABG / Lab / Microbiology Data Result Diagrams: 10/30/21 22:17 10/30/21 22:17 Discharge Plan Admission Admit Date/Time: 10/31/21 01:49 Primary Reason for Your Visit: UTI Attending Provider: Donato Wall Primary Care Provider: Jennifer Jones Discharge Orders/Prescriptions Prescriptions: New buspirone 15 mg Tablet 15 mg PO BID Qty: 0 RF: 0 cephalexin 500 mg capsule 500 mg PO TID 6 Days Qty: 18 RF: 0 Continued sertraline 100 MG tablet 200 mg PO DAILY RF: 0 hydroxyzine HCl 50 MG tablet 50 mg PO PRN PRN (Reason: Anxiety) RF: 0 famotidine 20 MG tablet 20 mg PO DAILY RF: 0 ziprasidone HCl 40 mg capsule 40 mg PO DAILY RF: 0 amlodipine 2.5 MG tablet 1 tab PO DAILY RF: 0 lacosamide 150 MG tablet 150 mg PO BID RF: 0 Clonazepam 0.5 MG tablet 1 tab PO QHS RF: 0 oxcarbazepine 300 mg tablet 600 mg PO BID RF: 0 gabapentin 300 mg capsule 300 mg PO TID RF: 0 Referrals / Follow Up: Jennifer Jones MD [Primary Care Provider] - Disposition Disposition (needs filled in before D/C Order can be placed): Home, Self Care Charges/Coding Visit Charges OBSV E&M: 54579 Observation care discharge Hospital Course Operations None
--- NOTE | 2021-10-31 09:56 | CASEMGMT ---
Per ASSOCIATE SOFTWARE ENGINEER, pt is now back to her normal mentation and plan is to d/c home with family support today. Pt to f/u with her neuro OP. Ana Cristina NAVAS CM
--- NOTE | 2021-10-31 10:26 | TELEMED_ITS ---
[facility] has confirmed receipt of a request for visit. This document confirms receipt of the order initiating the consult. To find the results of the consultation, please view the patient's reports for the scanned Telemed Consult.
== END 2021-10-31 09:39 | disposition home or self-care (01) ==
LOC: ED 23:10 → PCU 10-31 02:31
PROVIDERS: Admitting Provider Internal Medicine; Emergency Provider Emergency Medicine; PCP Internal Medicine; Visit Provider Internal Medicine
DX: G93.40 Encephalopathy, unspecified (principal); N30.00 Acute cystitis without hematuria; I49.3 Ventricular premature depolarization; I44.0 Atrioventricular block, first degree; R53.1 Weakness; F31.9 Bipolar disorder, unspecified; F25.9 Schizoaffective disorder, unspecified; F17.210 Nicotine dependence, cigarettes, uncomplicated; E16.2 Hypoglycemia, unspecified; R09.02 Hypoxemia; I10 Essential (primary) hypertension; Z79.899 Other long term (current) drug therapy; R94.31 Abnormal electrocardiogram [ECG] [EKG]; R53.83 Other fatigue
CPT/HCPCS: 36600; 70450; 71045; 80053; 81001; 82140; 82803; 82962; 83605; 84443; 84484; 85025; 85379; 85610; 85730; 87077; 87086; 87088; 87186; 93005; 95819; 96361; 96365; 96375; 99218; 99285; 99406; J7030; J7050; A4216; G0378; J2310

== ENCOUNTER 2022-10-05 13:07 | Emergency (ER) | payer MEDICARE, MEDICAID, SELFPAY ==
[2022-10-05 13:09] VITALS: BP 126/82; PULSE 71; RESP 16; TEMP 36.5; O2SAT 94; BMI 34.7
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
[2022-10-05] MEDS: Diphth,Pertuss(Acell),Tet Vac 0.5 ML Vial IM (14:34)
[2022-10-05] MEDS: Lidocaine 1% (20 ml mdv) 20 ML Vial INFILT (14:35)
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
[2022-10-05 14:58] VITALS: RESP 18
== END 2022-10-05 15:07 | disposition home or self-care (01) ==
PROVIDERS: Emergency Provider Emergency Medicine; PCP Internal Medicine; Visit Provider Emergency Medicine
DX: S81.812A Laceration without foreign body, left lower leg, initial encounter (principal); F17.210 Nicotine dependence, cigarettes, uncomplicated; I10 Essential (primary) hypertension; X99.1XXA Assault by knife, initial encounter; Z23 Encounter for immunization
CPT/HCPCS: 12001; 73590; 90471; 90715; 99284

== ENCOUNTER 2022-10-24 14:34 | Emergency (ER) | payer MEDICARE, MEDICAID, SELFPAY ==
[2022-10-24 14:35] VITALS: BP 131/89; PULSE 61; RESP 18; TEMP 36.3; O2SAT 99; BMI 33.5
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
[2022-10-24] MEDS: Lidocaine 1% (20 ml mdv) 20 ML Vial INFILT (15:27)
[2022-10-24] MEDS: Cephalexin 250 MG Capsule 500 MG PO (15:42)
== END 2022-10-24 15:47 | disposition home or self-care (01) ==
PROVIDERS: Emergency Provider Emergency Medicine; PCP Internal Medicine; Visit Provider Emergency Medicine
DX: L02.416 Cutaneous abscess of left lower limb (principal); F25.9 Schizoaffective disorder, unspecified; G40.909 Epilepsy, unspecified, not intractable, without status epilepticus; I10 Essential (primary) hypertension; F17.210 Nicotine dependence, cigarettes, uncomplicated; Z48.02 Encounter for removal of sutures; Z96.659 Presence of unspecified artificial knee joint; K21.9 Gastro-esophageal reflux disease without esophagitis
CPT/HCPCS: 87070; 87075; 87205; 99283

== ENCOUNTER 2023-04-15 13:26 | Emergency (ER) | payer MEDICAID, SELFPAY ==
[2023-04-15] VITALS (7 sets, daily range): BP systolic 110–150; BP diastolic 69–89; PULSE 44–84; RESP 14–16; TEMP 36.2–36.8; O2SAT 93–97; BMI 33.5
--- NOTE | 2023-04-15 13:39 | CT_ITS ---
STUDY: CT BRAIN WITHOUT CONTRAST REASON FOR EXAM: Female, 57 years old. AMS RADIATION DOSAGE (If Supplied By Facility): CTDIvol = ( 44.99 ) mGy, DLP = ( 745.49 ) mGycm TECHNIQUE: Transaxial CT imaging of the brain was performed without administration of intravenous contrast material. Individualized dose optimization techniques were used for this CT. COMPARISON: Comparison is made with prior examination dated October 30, 2021. FINDINGS: Normal soft tissue structures. Normal calvarium. Normal size ventricles and extra-axial spaces for the patient''s age. Normal white matter tracts of the cerebral hemispheres. Normal basal ganglia and thalami. Normal brainstem. Normal cerebellum. There is no intracranial hemorrhage. There are no findings of an acute ischemic infarction. Normal visualized paranasal sinuses. CT/Brain/Head without Contrast IMPRESSION: Normal unenhanced CT scan of the brain. Electronically Signed: Andreas King MD at 14:33 EDT ,
--- NOTE | 2023-04-15 13:40 | EKG12_ITS ---
Test Reason : ALLT LOC Blood Pressure : / mmHG Vent. Rate : 045 BPM Atrial Rate : 045 BPM P-R Int : 266 ms QRS Dur : 090 ms QT Int : 462 ms P-R-T Axes : 063 046 056 degrees QTc Int : 399 ms Sinus bradycardia with 1st degree A-V block Otherwise normal ECG Confirmed by DALY BENITEZ, ELBA ([id number]), medical editor KAREN THORNTON ([id number]) on 04/19/2023 8:46:47 AM Referred By: DEVIN Confirmed By:ELBA KAUFFMAN MD
--- NOTE | 2023-04-15 14:20 | RAD_ITS ---
STUDY: X-RAY CHEST REASON FOR EXAM: Female, 57 years old. AMS TECHNIQUE: Single AP portable view of the chest. COMPARISON: None. FINDINGS: Comparison is made with prior study dated October 31, 2021. EKG electrodes are seen. There is no demonstrated pleural abnormality. Normal size heart. Normal mediastinum and araceli. There is prominence of the pulmonary hilar arteries without peripheral pulmonary vascular congestion, suggesting pulmonary hypertension. Normal visualized aortic arch and descending thoracic aorta. Normal visualized thoracic spine. Normal visualized ribs, clavicles, and shoulders. There is no demonstrated abnormality of the visualized soft tissue structures of the upper abdomen. RAD/Chest 1 View (Portable) IMPRESSION: Prominence of the central pulmonary arteries. Electronically Signed: Andreas King MD at 14:32 EDT ,
[2023-04-15 14:24] LABS: Bedside Glucose 103 mg/dL (74-106)
[2023-04-15 14:41] LABS: ALB/GLOB Ratio 0.7 RATIO (0.9-2.4); AST(SGOT) 6 U/L (15-37); Alanine Aminotransfer ALT/SGPT 16 U/L (13-56); Alkaline Phosphatase 88 U/L (45-117); Anion Gap 4 (5-15); BUN 18 mg/dL (7-18); BUN/Creat Ratio 17.1 RATIO (10-20); Calcium,Total 8.5 mg/dL (8.5-10.1); Chloride 111 mmol/L (98-107); Creatinine, Serum 1.05 mg/dL (0.55-1.02); EST Glomerular Filtration Rate 57 mL/min (>60); Est Glom Filt Rate - Afr Amer 69 mL/min (>60); Estimated Creatinine Clearance 61.78 ml/min; Globulin 4.1 g/dL (2.2-4.2); Glucose 98 mg/dL (74-106); Lipase 28 U/L (13-75); Potassium 4.2 mmol/L (3.5-5.1); Protein, Total 7.1 g/dL (6.4-8.2); Sodium Level 143 mmol/L (136-145); Troponin-I HS 5 pg/mL (3.0-54.0)
--- NOTE | 2023-04-15 14:43 | NURSING ---
04/15/23@1415- SEIZURE PADS APPLIED.
--- NOTE | 2023-04-15 15:15 | EX.ED.DYSGE1 ---
HPI History of Present Illness Chief Complaint: Alt LOC [facility] Medical History (Updated 04/15/23 @ 17:[address] Mihai Ibarra DO) Hx of gastroesophageal reflux (GERD) Hypertension Schizoaffective disorder Seizure disorder Home Medications famotidine 20 mg tablet 20 mg PO DAILY gerd 07/24/20 [History Last Taken 07/23/20] hydroxyzine HCl 50 mg tablet 50 mg PO PRN PRN Anxiety 07/24/20 [History Last Taken Unknown] sertraline 100 mg tablet 200 mg PO DAILY depression 07/24/20 [History Last Taken 07/23/20] ziprasidone HCl 40 mg capsule 40 mg PO DAILY depression 07/24/20 [History Last Taken 07/23/20] Clonazepam 1 tab PO QHS anxiety 11/14/20 [History Last Taken Unknown] amlodipine 2.5 mg tablet 1 tab PO DAILY HTN 11/14/20 [History Last Taken 10/30/21] lacosamide 150 mg tablet 150 mg PO BID 11/14/20 [History Last Taken 10/30/21] gabapentin 300 mg capsule 300 mg PO TID 10/30/21 [History Last Taken 10/30/21] oxcarbazepine 300 mg tablet 600 mg PO BID 10/30/21 [History Last Taken 10/30/21] buspirone 15 mg tablet 15 mg PO BID #0 tabs 10/31/21 [Rx Last Taken Unknown] cephalexin 500 mg capsule 500 mg PO TID 6 days #18 caps 10/31/21 [Rx Last Taken Unknown] cephalexin 500 mg capsule 500 mg PO Q12 #14 caps 10/05/22 [Rx Last Taken Unknown] cephalexin 500 mg capsule 500 mg PO BID 3 days #6 caps 10/24/22 [Rx Last Taken Unknown] ciprofloxacin HCl 500 mg tablet 500 mg PO BID #14 TABLETS 04/15/23 [Rx Last Taken Unknown] Allergy/AdvReac Type Severity Reaction Status Date / Time No Known Allergies Allergy Verified 04/15/23 13:35 Social History Smoking Status: Current every day smoker tobacco type: cigarettes EXAM Physical Exam Const Vital Signs: 04/15/23 13:27 04/15/23 13:35 04/15/23 14:35 Temperature 97.6 F L 97.2 F L 97.3 F L Temperature Source Temporal Oral Oral Pulse Rate 46 L 44 L 47 L Respiratory Rate 16 14 16 Blood Pressure 118/69 110/71 115/87 H Blood Pressure Mean 85 84 96 Pulse Ox 97 94 93 Oxygen Delivery Method Room Air Room Air Room Air 04/15/23 15:00 04/15/23 16:00 Temperature 97.2 F L 97.1 F L Temperature Source Oral Oral Pulse Rate 48 L 45 L Respiratory Rate 14 16 Blood Pressure 112/83 H 118/79 Blood Pressure Mean 92 92 Pulse Ox 94 93 Oxygen Delivery Method Room Air [place] [facility] [place] Medical decision making narrative: HISTORY OF PRESENT ILLNESS: 57-year-old female presents with change in mental status. Patient states that she has history of seizures. States has been compliant with her home antiepileptic medicine. She states she typically gets an aura before having a seizure. She states she notes feeling tired and she notes she feels the seizure coming on. Notes that this afternoon she started feeling like she was going to have a seizure so she laid down. Next time she woke up to EMS was there. She denies any recent fever, neck stiffness. She does note diarrhea but denies any vomiting. Denies any recent sick contacts or other illnesses. She denies drinking alcohol. Denies any drug use. She denies any headache or focal weakness at this time. REVIEW OF SYSTEMS: Pertinent positives: Seizure Pertinent negatives: Fever, neck stiffness, focal weakness PHYSICAL EXAM: Nursing triage notes reviewed, Vital signs reviewed Constitutional: please see mdm HENT: MMM Eyes: Pupils equal round and reactive to light, Extraocular muscles intact Neck: No stridor, no JVD, full neck ROM Lungs: Clear to auscultation, No wheezing or rales. No increased work of breathing, no conversational dyspnea, no accessory muscle use, no nasal flaring. No respiratory distress noted Heart: Regular rate and rhythm, No murmurs, No rubs and No gallops, 2+ distal pulses (radial, femoral, posterior tibial) in all extremities Abdomen: Soft, there is no tenderness, rigidity, rebound or guarding, no obvious peritoneal signs, no palpable pulsatile abdominal masses, no auscultated abdominal bruit : No CVAT Extremities: No edema Neuro: No focal neurological deficits, cranial nerves II through XII intact, 5/5 strength in all extremities. Intact sensation to light touch in all extremities, 2+ reflexes bilateral patella tendons. Normal gait. No ataxia. Skin: No rash or lesions noted MEDICAL DECISION MAKING: Chief Complaint: Altered mental status, seizure External records reviewed: Factors affecting care: History of seizures, hypertension schizophrenia Social determinants of health: History of behavioral health disorder History obtained from others: EMS Consults: None ALL IMAGES HAVE BEEN PERSONALLY REVIEWED AND INTERPRETED BY MYSELF. [facility] Narrative: Patient was hemodynamically stable, afebrile, nontoxic-appearing. She had no focal neurologic deficits. No signs of trauma on initial exam I considered the following differential diagnosis: Seizure, electrolyte abnormality, intracranial hemorrhage, meningitis encephalitis, hypoglycemia I considered meningitis encephalitis a potential etiology of the patient had no fever was nontoxic-appearing and had no meningeal signs on exam. I obtained a CT scan to rule out signs of intracranial hemorrhaging, mass. I obtain labs to rule out significant electrolyte abnormalities or signs of systemic inflammation. Labs images were remarkable for no evidence of significant electrolyte abnormalities. No evidence of panlobular pathology. No evidence of myocardial ischemia or significant anemia. Patient's urine was remarkable for infection. Will send for culture and give empiric antimicrobial therapy based on prior culture results if available. The patient's prior urine culture results grew E. coli that was sensitive to ciprofloxacin. I will prescribe ciprofloxacin twice daily for neck 7 days. Patient can be discharged. Likely UTI lowered her seizure threshold producing seizures. She is a known seizure disorder. She was given heavy machinery motor vehicle instructions. She was instructed not to drive. She is instructed follow with her neurologist for reevaluation of her antiseizure medicine occasion regiment. She is instructed to return to the emergency department if her symptoms change or worsen. Patient agreed with the plan. Total critical care time today provided was at least 0 minutes. This excludes separately billable procedures. There was a high probability of clinically significant/life threatening deterioration in the patient's condition which required my urgent intervention. Shared decision making: I will have a discussion with the patient and or visitors regarding risk/benefits of further testing or admission. They will be made aware of of the risk/benefits inherent in this decision they will be given the opportunity to voice understanding. Lab Data Attestation: I reviewed the patient's lab results. Lab results narrative: BMP without evidence of significant electrolyte abnormalities, no anion gap, no acute kidney injury. LFTs show no evidence of hepatobiliary pathology. Lipase is wnl indicating no pancreatic inflammation. EKG with sinus bradycardia, first-degree AV block, normal axis, no STEMI Troponin is negative, no evidence of myocardial ischemia Labs: Laboratory Results - last 24 hr 04/15/23 04/15/23 04/15/23 13:51 14:12 16:30 WBC RBC Hgb Hct MCV MCH MCHC RDW Std Deviation RDW Coeff of Scottie Plt Count MPV Sodium 143 Potassium 4.2 Chloride 111 H Carbon Dioxide 28.0 Anion Gap 4 L BUN 18 Creatinine 1.05 H Estim Creat Clear Calc 61.78 Est GFR (MDRD) Af Amer 69 Est GFR (MDRD) Non-Af 57 L BUN/Creatinine Ratio 17.1 Glucose 98 Calcium 8.5 Total Bilirubin 0.20 AST 6 L ALT 16 Alkaline Phosphatase 88 Troponin I High Sens 5 Total Protein 7.1 Albumin 3.0 L Globulin 4.1 Albumin/Globulin Ratio 0.7 L Lipase 28 Urine Color Yellow Urine Clarity Sl. Cloudy Urine pH 6.0 Ur Specific [place] 1.015 Urine Protein Negative Urine Glucose (UA) Normal Urine Ketones Negative Urine Occult Blood 50 H Urine Nitrite Positive H Urine Bilirubin Negative Urine Urobilinogen Normal Ur Leukocyte Esterase 100 H Urine RBC 0 SEEN Urine WBC 5-10 SEEN Ur Squamous Epith Cells 0 SEEN Urine Bacteria 2+ Urine Mucus 0 SEEN POC Glucose 103 04/15/23 16:30 WBC 6.8 RBC 4.26 Hgb 12.8 Hct 39.9 MCV 93.7 MCH 30.0 MCHC 32.1 RDW Std Deviation 52.0 H RDW Coeff of Scottie 15.1 H Plt Count 310 MPV 9.2 Sodium Potassium Chloride Carbon Dioxide Anion Gap BUN Creatinine Estim Creat Clear Calc Est GFR (MDRD) Af Amer Est GFR (MDRD) Non-Af BUN/Creatinine Ratio Glucose Calcium Total Bilirubin AST ALT Alkaline Phosphatase Troponin I High Sens Total Protein Albumin Globulin Albumin/Globulin Ratio Lipase Urine Color Urine Clarity Urine pH Ur Specific [place] Urine Protein Urine Glucose (UA) Urine Ketones Urine Occult Blood Urine Nitrite Urine Bilirubin Urine Urobilinogen Ur Leukocyte Esterase Urine RBC Urine WBC Ur Squamous Epith Cells Urine Bacteria Urine Mucus POC Glucose Radiography Diagnostic Testing: Clinical Impression(s) from Imaging Studies Brain CT 04/15/23 13:39 IMPRESSION: Normal unenhanced CT scan of the brain. Electronically Signed: Andreas King MD at 14:33 EDT , Chest X-Ray 04/15/23 14:20 IMPRESSION: Prominence of the central pulmonary arteries. Electronically Signed: Andreas King MD at 14:32 EDT , I have personally reviewed the patient's chest x-ray. Chest x-ray is unremarkable for pulmonary edema, pneumothorax, pneumonia or focal cardiopulmonary abnormality. Discharge Plan Triage Chief Complaint: Alt LOC ED Provider: Mihai Ibarra Dx/Rx/DC Orders Clinical Impression: UTI (urinary tract infection), Seizure disorder Instructions: ED Seizure, Recurrent (Adult), ED Cystitis Female Adult Prescriptions: New ciprofloxacin HCl 500 mg tablet 500 mg PO BID Qty: 14 0RF No Action sertraline 100 MG tablet 200 mg PO DAILY hydroxyzine HCl 50 MG tablet 50 mg PO PRN PRN (Reason: Anxiety) famotidine 20 MG tablet 20 mg PO DAILY ziprasidone HCl 40 mg capsule 40 mg PO DAILY Label Comments: Take 1 capsule by mouth once a day amlodipine 2.5 MG tablet 1 tab PO DAILY lacosamide 150 MG tablet 150 mg PO BID Label Comments: Take 1 tablet by mouth twice daily. Clonazepam 0.5 MG tablet 1 tab PO QHS oxcarbazepine 300 mg tablet 600 mg PO BID Label Comments: TAKE 2 TABLETS TWICE DAILY gabapentin 300 mg capsule 300 mg PO TID Label Comments: Take 1 capsule by mouth three times daily for 30 days. buspirone 15 mg Tablet 15 mg PO BID Qty: 0 0RF cephalexin 500 mg capsule 500 mg PO TID 6 Days Qty: 18 0RF cephalexin 500 mg capsule 500 mg PO Q12 Qty: 14 0RF cephalexin 500 mg capsule 500 mg PO BID 3 Days Qty: 6 0RF Primary Care Provider: Jennifer Jones Referrals: Jennifer Jones MD [Primary Care Provider] - Activity Restrictions/Additional Instructions: Thank you for trusting us with your care today! Please take Tylenol (2 pills, 650 mg), ibuprofen (2 pills, 400 mg) every 6 hours as needed for pain and fever control. Please take antibiotics as prescribed. Please take antibiotics until course is complete. Please return to the emergency department if your symptoms change or worsen. Specifically if you develop fever, vomiting you cannot take your medicine. If develop seizures. If develop worsening abdominal pain. Please follow with your primary care physician for further outpatient evaluation and management. Disposition Disposition: Home, Self Care
--- NOTE | 2023-04-15 16:11 | NURSING ---
04/15/23@2330 PT'S DAUGHTER YUNG CALLED IN FOR UPDATE. UPDATE GIVEN. SHE STATED IF PT NEEDS TO BE ADMITTED OVER NIGHT SHE IS OK WITH THAT.
[2023-04-15 16:39] LABS: Mucous, Urine 0 SEEN /hpf (<or=2+); Red Blood Cells-Urine 0 SEEN /hpf (0-5); Squamous Epithelial Cells - UA 0 SEEN /hpf (5-10)
[2023-04-15 16:47] LABS: Hematocrit 39.9 % (37-47); Hemoglobin 12.8 g/dL (12.0-15.0); Mean Corp Hgb Conc 32.1 g/dL (32-36); Mean Corpuscular Volume 93.7 fL (81-99); Mean Platelet Vol. 9.2 fl (6.2-12.0); Platelet Count 310 K/mm3 (150-450); RBC Distribution Width CV 15.1 % (11.6-14.6); Red Blood Count 4.26 M/mm3 (4.2-5.4); White Blood Count 6.8 K/mm3 (4.4-11.0)
[2023-04-15 16:58] LABS: Color, Urine Yellow (Yellow); Glucose, Dipstick Normal (Normal); Ketone-Dipstick Negative (Negative); Leukocyte Esterase-Dipstick 100 /ul (Negative); Nitrite-Dipstick Positive (Negative); Occult Blood-Urine 50 /ul (Negative); Protein-Dipstick Negative (Negative); Specific Gravity, Urine 1.015 (1.002-1.030); Urine Bilirubin Dipstick Negative (Negative); Urine Clarity Sl. Cloudy (Clear); Urine Urobilinogen Normal (Normal)
[2023-04-15 17:05] LABS: Bacteria 2+ /hpf (None Seen); White Blood Cells 5-10 SEEN /hpf (0-5)
[2023-04-15] MEDS: Ciprofloxacin 500 MG Tablet PO (17:47)
== END 2023-04-15 18:06 | disposition home or self-care (01) ==
PROVIDERS: Emergency Provider Emergency Medicine; PCP Internal Medicine; Visit Provider Emergency Medicine
DX: N39.0 Urinary tract infection, site not specified (principal); F20.9 Schizophrenia, unspecified; G40.909 Epilepsy, unspecified, not intractable, without status epilepticus; I10 Essential (primary) hypertension; F17.210 Nicotine dependence, cigarettes, uncomplicated
CPT/HCPCS: 70450; 71045; 80048; 80053; 81001; 82962; 83690; 84484; 85027; 93005; 99285; J7030; A4216

== ENCOUNTER 2023-05-08 19:16 | Emergency (ER) | payer MEDICAID, SELFPAY ==
[2023-05-08 19:17] VITALS: BP 126/78; PULSE 72; RESP 18; TEMP 36.6; O2SAT 95; BMI 33.8
--- NOTE | 2023-05-08 19:29 | EDS_ITS ---
HPI History of Present Illness Chief Complaint: Dental Informant: patient Onset/Context/Timing Onset: Days Context: Gradual Onset Narrative Narrative: Patient reports mild upper dental pain over the past several days. She states 2 days ago got worse and she knows she had a tooth that had been cracked. Today she was eating and felt another crack and has not had increased pain. She is be en using ibuprofen and Tylenol without improvement. She has an appointment to see a dentist in [place] this week. [facility] Medical History Hx of gastroesophageal reflux (GERD) Hypertension Schizoaffective disorder Seizure disorder Home Medications famotidine 20 mg tablet 20 mg PO DAILY gerd 07/24/20 [History Last Taken 07/23/20] hydroxyzine HCl 50 mg tablet 50 mg PO QHS 07/24/20 [History Last Taken Unknown] sertraline 100 mg tablet 200 mg PO DAILY depression 07/24/20 [History Last Taken 07/23/20] ziprasidone HCl 40 mg capsule 40 mg PO DAILY depression 07/24/20 [History Last Taken 07/23/20] Clonazepam 1 tab PO QHS anxiety 11/14/20 [History Last Taken Unknown] amlodipine 2.5 mg tablet 1 tab PO DAILY HTN 11/14/20 [History Last Taken 10/30/21] lacosamide 150 mg tablet 150 mg PO BID 11/14/20 [History Last Taken 10/30/21] gabapentin 300 mg capsule 300 mg PO TID 10/30/21 [History Last Taken 10/30/21] oxcarbazepine 300 mg tablet 600 mg PO BID 10/30/21 [History Last Taken 10/30/21] hydrocodone-acetaminophen 5-325mg 5mg-325mg 1 tab PO Q6H PRN PRN Pain 3 days #10 TABLETS 05/08/23 [Rx Last Taken Unknown] penicillin V potassium 500 mg tablet 500 mg PO 4X/DAY #40 tabs 05/08/23 [Rx Last Taken Unknown] Allergy/AdvReac Type Severity Reaction Status Date / Time No Known Allergies Allergy Verified 04/15/23 13:35 Social History Smoking Status: Current every day smoker tobacco type: cigarettes ROS ROS ED Constitutional Constitutional ED: Denies chills or fever(s) Eyes Eyes: Denies change in vision or discharge from eye(s) ENT ENT ED: Reports other Details: Dental pain ; Denies discharge from eye(s), rhinorrhea or sore throat Cardiovascular Cardiovascular: Denies chest pain Respiratory/Chest Respiratory/Chest: Denies cough or dyspnea Gastrointestinal Gastrointestinal: Denies abdominal pain, nausea or vomiting Genitourinary Genitourinary ED: Denies dysuria Musculoskeletal Musculoskeletal: Denies back pain or extremity pain Integumentary Denies Abrasions or rash Neurologic Neurologic: Denies headache(s) or weakness Psychiatric Psychiatric: Denies anxiety or depression Allergic/Immunologic Allergic/Immunologic ED: Denies lip swelling or urticaria EXAM Physical Exam Const Vital Signs: 05/08/23 19:17 Temperature 97.9 F Temperature Source Temporal Pulse Rate 72 Respiratory Rate 18 Blood Pressure 126/78 H Blood Pressure Mean 94 Pulse Ox 95 Positive well nourished and well developed General Appearance ED: well developed HEENT Reports TM's clear HEENT Narrative: No facial edema or erythema. Intraoral examination reveals tenderness to the central incisors on the maxillary surface. No significant surrounding gum edema. Area on the backside of the tooth is examined it does appear dark discoloration the proximal portion of the right central incisor. Posterior pharynx exam is unremarkable. Tympanic Membrane ED: Yes TM's clear Eyes PERRL and EOMs intact bilaterally Chest Wall inspection of chest normal and palpation of chest normal Resp normal respiratory effort and clear to auscultation bilaterally Cardio regular rate and regular rhythm GI normal to inspection, nondistended, normoactive bowel sounds Extremity normal to inspection Neuro oriented x3 and moves all extremities MDM MDM MDM Narrative Medical decision making narrative: Patient has been using Tylenol and ibuprofen without improvement. We will start her on Pen-Vee K and I will write her a short course of [place]. I did do an [facility] report and she has not had a prescription for narcotics since November. She is to follow with her dentist this week as scheduled. Discharge Plan Triage Chief Complaint: Dental ED Provider: Maggi Awan Dx/Rx/DC Orders Clinical Impression: Odontalgia Instructions: ED Dental Pain Prescriptions: New penicillin V potassium 500 mg tablet 500 mg PO 4X/DAY Qty: 40 0RF hydrocodone-acetaminophen 5-325 mg tablet 1 tab PO Q6H PRN PRN (Reason: Pain) 3 Days Qty: 10 0RF No Action sertraline 100 MG tablet 200 mg PO DAILY hydroxyzine HCl 50 MG tablet 50 mg PO QHS famotidine 20 MG tablet 20 mg PO DAILY ziprasidone HCl 40 mg capsule 40 mg PO DAILY Label Comments: Take 1 capsule by mouth once a day amlodipine 2.5 MG tablet 1 tab PO DAILY lacosamide 150 MG tablet 150 mg PO BID Label Comments: Take 1 tablet by mouth twice daily. Clonazepam 0.5 MG tablet 1 tab PO QHS oxcarbazepine 300 mg tablet 600 mg PO BID Label Comments: TAKE 2 TABLETS TWICE DAILY gabapentin 300 mg capsule 300 mg PO TID Label Comments: Take 1 capsule by mouth three times daily for 30 days. Primary Care Provider: Jennifer Jones Referrals: Jennifer Jones MD [Primary Care Provider] - Activity Restrictions/Additional Instructions: Follow-up with your dentist this week as discussed. Disposition Disposition: Home, Self Care
[2023-05-08] MEDS: HYDROcodone Bitartrate/Apap 5/325 Tablet PO (19:38)
[2023-05-08] MEDS: Penicillin Vk 250 MG Tablet 500 MG PO (19:38)
== END 2023-05-08 19:58 | disposition home or self-care (01) ==
PROVIDERS: Emergency Provider Emergency Medicine; PCP Internal Medicine; Visit Provider Emergency Medicine
DX: K08.89 Other specified disorders of teeth and supporting structures (principal); I10 Essential (primary) hypertension; F17.210 Nicotine dependence, cigarettes, uncomplicated
CPT/HCPCS: 99283

== ENCOUNTER 2023-05-23 12:28 | Emergency (ER) | payer MEDICAID, SELFPAY ==
[2023-05-23 12:30] VITALS: BP 137/81; PULSE 56; RESP 16; TEMP 37; O2SAT 97; BMI 34.6
--- NOTE | 2023-05-23 12:35 | EX.ED.DYSGE1 ---
HPI History of Present Illness Chief Complaint: Chest Pain [facility] Medical History Hx of gastroesophageal reflux (GERD) Hypertension Schizoaffective disorder Seizure disorder Home Medications famotidine 20 mg tablet 20 mg PO DAILY gerd 07/24/20 [History Last Taken 07/23/20] hydroxyzine HCl 50 mg tablet 50 mg PO QHS 07/24/20 [History Last Taken Unknown] sertraline 100 mg tablet 200 mg PO DAILY depression 07/24/20 [History Last Taken 07/23/20] ziprasidone HCl 40 mg capsule 40 mg PO DAILY depression 07/24/20 [History Last Taken 07/23/20] Clonazepam 1 tab PO QHS anxiety 11/14/20 [History Last Taken Unknown] amlodipine 2.5 mg tablet 1 tab PO DAILY HTN 11/14/20 [History Last Taken 10/30/21] lacosamide 150 mg tablet 150 mg PO BID 11/14/20 [History Last Taken 10/30/21] gabapentin 300 mg capsule 300 mg PO TID 10/30/21 [History Last Taken 10/30/21] oxcarbazepine 300 mg tablet 600 mg PO BID 10/30/21 [History Last Taken 10/30/21] hydrocodone-acetaminophen 5-325mg 5mg-325mg 1 tab PO Q6H PRN PRN Pain 3 days #10 TABLETS 05/08/23 [Rx Last Taken Unknown] penicillin V potassium 500 mg tablet 500 mg PO 4X/DAY #40 tabs 05/08/23 [Rx Last Taken Unknown] Allergy/AdvReac Type Severity Reaction Status Date / Time No Known Allergies Allergy Verified 05/23/23 12:37 Social History Smoking Status: Current every day smoker tobacco type: cigarettes EXAM Physical Exam Const Vital Signs: 05/23/23 12:30 05/23/23 12:38 05/23/23 12:35 Temperature 98.6 F Temperature Source Oral Pulse Rate 56 L Respiratory Rate 16 Respiratory Effort Normal Respiratory Pattern Normal Blood Pressure 137/81 H Blood Pressure Mean 99 Pulse Ox 97 Oxygen Delivery Method Room Air Room Air 05/23/23 13:49 Temperature Temperature Source Pulse Rate 54 L Respiratory Rate 15 Respiratory Effort Respiratory Pattern Blood Pressure 112/76 Blood Pressure Mean 88 Pulse Ox 95 Oxygen Delivery Method [place] [facility] [place] Medical decision making narrative: HISTORY OF PRESENT ILLNESS: 57-year-old female here with chest pain and diffuse weakness for the last several days. Notes she is being treated for possible seizures with vimpat. The patient denies recent surgery in the last 4 weeks or immobilization in the last 3 days, denies previous diagnosis of DVT or PE, hemoptysis, unilateral leg swelling or malignancy with treatment the last 6 months. No estrogen use noted. Patient denies sudden onset of pain, no tearing sensation, no migratory symptoms, no new numbness, weakness or loss of sensation. Patient denies family history or personal history of Marfan syndrome or Ita-Danlos REVIEW OF SYSTEMS: Pertinent positives: Chest pain, diffuse weakness Pertinent negatives: Syncope, focal weakness PHYSICAL EXAM: Nursing triage notes reviewed, Vital signs reviewed Constitutional: please see mdm HENT: MMM Eyes: Pupils equal round and reactive to light, Extraocular muscles intact Neck: No stridor, no JVD, full neck ROM Lungs: Clear to auscultation, No wheezing or rales. No increased work of breathing, no conversational dyspnea, no accessory muscle use, no nasal flaring. No respiratory distress noted Heart: Regular rate and rhythm, No murmurs, No rubs and No gallops, 2+ distal pulses (radial, femoral, posterior tibial) in all extremities Abdomen: Soft, there is no tenderness, rigidity, rebound or guarding, no obvious peritoneal signs, no palpable pulsatile abdominal masses, no auscultated abdominal bruit : No CVAT Extremities: No edema Neuro: Alert and oriented x3, neuro exam at baseline, cranial nerves II through XII are intact. No pain with extraocular muscle movement. There is negative test of skew. Normal speech. 5 of 5 strength in upper and lower extremities in flexion extension. Intact sensation to light touch in upper and lower extremity dermatomes. No truncal or extremity ataxia. No dysdiadochokinesia. Normal gait. 2+ reflexes. No meningeal signs. Negative Babinski. 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 MRI at this time of the brain was Factors affecting care: hypertension, anxiety, GERD, schizophrenia, bipolar disorder, hypertension Social determinants of health: History of psychiatric disorders History obtained from others: none Consults: none ALL IMAGES (IF OBTAINED) HAVE BEEN PERSONALLY REVIEWED AND INTERPRETED BY MYSELF. EKG with normal sinus rhythm, normal axis, normal intervals, no STEMI Troponin is negative, no evidence of myocardial ischemia BNP within normal limits this suggests no volume overload, increased ventricular stretch or transmural pressure CBC without leukocytosis, severe anemia, no thrombocytopenia. MDM Narrative: The patient was hemodynamically stable, afebrile, nontoxic-appearing. No focal cardiopulmonary abnormalities were noted on my exam. I considered the following differential diagnosis: PE less likely given low risk Wells score. Aortic dissection is thought to be less likely given no sudden ripping or tearing pain, migratory pain, palpable pulse inequalities, no focal neurologic deficits concurrent with chest pain. Chance of dissection less than 11/1999. Pericarditis less likely given no pathognomonic EKG changes (no diffuse ST elevations, PA depressions). GI etiology (i.e. Boerhaave syndrome) less likely given no chest or neck crepitus, no vomiting or forced retching. I completed a HEART Score to screen for Major Adverse Cardiac Event (MACE) in this patient. The evidence indicates that the patient is very low risk for MACE and this is consistent with my clinical intuition. The risk of further workup or hospitalization for MACE is likely higher than the risk of the patient having a MACE. It is, therefore, in the patient?s best interest not to do additional emergent testing or to be hospitalized for MACE at this time. Shared Decision-Making No hospitalization indicated I have discussed with the patient my clinical impression and the result of the HEART Score to screen for MACE, as well as the risks of further testing and hospitalization. The HEART Score shows that the risk for MACE is less than 1%. Although the risk of MACE has not been completely eliminated, the risks of further testing or hospitalization for MACE likely exceed any potential benefit, and the patient agrees with not pursuing further emergent evaluation or hospitalization for MACE at this time. The patient and/or family, caregivers express understanding. The patient and/or family, caregivers agrees with the plan. Total critical care time today provided was at least 0 minutes. This excludes separately billable procedures. Critical care time (if documented) is secondary to the patient having high probability of clinically significant/life threatening deterioration in the patient's condition which required my urgent intervention. Lab Data Labs: Laboratory Results - last 24 hr 05/23/23 12:40 WBC 6.9 RBC 4.47 Hgb 13.4 Hct 42.2 MCV 94.4 MCH 30.0 MCHC 31.8 L RDW Std Deviation 50.4 H RDW Coeff of Scottie 14.5 Plt Count 305 MPV 9.5 Immature Gran % (Auto) 0.400 Neut % (Auto) 45.9 L Lymph % (Auto) 44.9 H [place] % (Auto) 4.6 Eos % (Auto) 3.9 Baso % (Auto) 0.3 Absolute Neuts (auto) 3.2 Absolute Lymphs (auto) 3.11 Nucleated RBC % 0 Sodium 138 Potassium 4.1 Chloride 110 H Carbon Dioxide 27.0 Anion Gap 1 L BUN 17 Creatinine 1.00 Estim Creat Clear Calc 64.87 Est GFR (MDRD) Af Amer 73 Est GFR (MDRD) Non-Af 61 BUN/Creatinine Ratio 17.0 Glucose 96 Calcium 9.3 Troponin I High Sens 5 B-Natriuretic Peptide 3.4 Radiography Chest X-Ray - ED: Read by ED Physician Diagnostic Testing: Clinical Impression(s) from Imaging Studies Chest X-Ray 05/23/23 13:00 IMPRESSION: Normal x-ray examination of the chest. Electronically Signed: Andreas King MD at 13:55 EDT , I have personally reviewed the patient's chest x-ray. Chest x-ray is unremarkable for pulmonary edema, pneumothorax, pneumonia or focal cardiopulmonary abnormality. Discharge Plan Triage Chief Complaint: Chest Pain Other Complaint: Weakness ED Provider: Mihai Ibarra Dx/Rx/DC Orders Prescriptions: No Action sertraline 100 MG tablet 200 mg PO DAILY hydroxyzine HCl 50 MG tablet 50 mg PO QHS famotidine 20 MG tablet 20 mg PO DAILY ziprasidone HCl 40 mg capsule 40 mg PO DAILY Patient Comments: Take 1 capsule by mouth once a day amlodipine 2.5 MG tablet 1 tab PO DAILY lacosamide 150 MG tablet 150 mg PO BID Patient Comments: Take 1 tablet by mouth twice daily. Clonazepam 0.5 MG tablet 1 tab PO QHS oxcarbazepine 300 mg tablet 600 mg PO BID Patient Comments: TAKE 2 TABLETS TWICE DAILY gabapentin 300 mg capsule 300 mg PO TID Patient Comments: Take 1 capsule by mouth three times daily for 30 days. penicillin V potassium 500 mg tablet 500 mg PO 4X/DAY Qty: 40 0RF hydrocodone-acetaminophen 5-325 mg tablet 1 tab PO Q6H PRN PRN (Reason: Pain) 3 Days Qty: 10 0RF Primary Care Provider: Jennifer Jones Referrals: Jennifer Jones MD [Primary Care Provider] -
--- NOTE | 2023-05-23 12:36 | EKG12_ITS ---
Test Reason : CP Blood Pressure : / mmHG Vent. Rate : 056 BPM Atrial Rate : 056 BPM P-R Int : 190 ms QRS Dur : 090 ms QT Int : 420 ms P-R-T Axes : 072 034 057 degrees QTc Int : 405 ms Sinus bradycardia Nonspecific T wave abnormality Abnormal ECG Confirmed by DALY BENITEZ, ELBA ([id number]), editor house organ KAREN THORNTON ([id number]) on 05/25/2023 10:14:46 AM Referred By: Confirmed By:ELBA KAUFFMAN MD
[2023-05-23 12:58] LABS: Absolute Lymphocyte Count 3.11 X10^3/uL (0.83-4.51); Absolute Neutrophil Count 3.2 X10^3/uL (2.0-7.7); Basophil# 0.02 X10^3/uL; Basophil% 0.3 % (0-1); Eosinophil# 0.27 X10^3/uL; Eosinophils% 3.9 % (0-5); Hematocrit 42.2 % (37-47); Hemoglobin 13.4 g/dL (12.0-15.0); Lymphocyte # 3.11 X10^3/ul (0.83-4.51); Lymphocyte % 44.9 % (19-41); Mean Corp Hgb Conc 31.8 g/dL (32-36); Mean Corpuscular Volume 94.4 fL (81-99); Mean Platelet Vol. 9.5 fl (6.2-12.0); Monocyte# 0.32 X10^3/uL; Monocyte% 4.6 % (0-10); NRBC Flagged by Analyzer 0 % (0-5); Neutrophil # 3.17 X10^3/uL (2.7-7.7); Neutrophil % 45.9 % (47-70); Platelet Count 305 K/mm3 (150-450); RBC Distribution Width CV 14.5 % (11.6-14.6); RBC Distribution Width SD 50.4 fl (35.1-43.9); Red Blood Count 4.47 M/mm3 (4.2-5.4); White Blood Count 6.9 K/mm3 (4.4-11.0)
--- NOTE | 2023-05-23 13:00 | RAD_ITS ---
STUDY: X-RAY CHEST REASON FOR EXAM: Female, 57 years old. Chest pain TECHNIQUE: Single AP portable view of the chest. COMPARISON: Comparison is made with prior study April 15, 2023. FINDINGS: EKG electrodes are seen. The lungs are clear and expanded. There is no demonstrated pleural abnormality. Normal size heart. Normal mediastinum and araceli. Normal visualized pulmonary arteries. Normal visualized aortic arch and descending thoracic aorta. Normal visualized thoracic spine. Normal visualized ribs, clavicles, and shoulders. There is no demonstrated abnormality of the visualized soft tissue structures of the upper abdomen. RAD/Chest 1 View (Portable) IMPRESSION: Normal x-ray examination of the chest. Electronically Signed: Andreas King MD at 13:55 EDT ,
[2023-05-23 13:14] LABS: Anion Gap 1 (5-15); BUN 17 mg/dL (7-18); Calcium,Total 9.3 mg/dL (8.5-10.1); Chloride 110 mmol/L (98-107); EST Glomerular Filtration Rate 61 mL/min (>60); Est Glom Filt Rate - Afr Amer 73 mL/min (>60); Estimated Creatinine Clearance 64.87 ml/min; Glucose 96 mg/dL (74-106); Potassium 4.1 mmol/L (3.5-5.1); Sodium Level 138 mmol/L (136-145); Troponin-I HS 5 pg/mL (3.0-54.0)
[2023-05-23 13:36] LABS: BNP,B-Type NATRIURETIC PEPTIDE 3.4 pg/mL (0-100)
[2023-05-23 13:49] VITALS: BP 112/76; PULSE 54; RESP 15; O2SAT 95
[2023-05-23 14:24] VITALS: BP 121/79; PULSE 53; RESP 14; O2SAT 93
== END 2023-05-23 14:30 | disposition home or self-care (01) ==
PROVIDERS: Emergency Provider Emergency Medicine; PCP Internal Medicine; Visit Provider Emergency Medicine
DX: R53.1 Weakness (principal); F20.9 Schizophrenia, unspecified; F31.9 Bipolar disorder, unspecified; I10 Essential (primary) hypertension; F17.210 Nicotine dependence, cigarettes, uncomplicated; F41.9 Anxiety disorder, unspecified; K21.9 Gastro-esophageal reflux disease without esophagitis
CPT/HCPCS: 71045; 80048; 83880; 84484; 85025; 93005; 99285

== ENCOUNTER 2023-05-30 12:33 | Emergency (ER) | payer MEDICAID, SELFPAY ==
[2023-05-30 12:34] VITALS: BP 147/91; PULSE 59; RESP 17; TEMP 36.8; O2SAT 97; BMI 34.3
--- NOTE | 2023-05-30 13:00 | RAD_ITS ---
STUDY: X-RAY CHEST REASON FOR EXAM: Female, 57 years old. Chest pain. TECHNIQUE: Single frontal view of the chest. COMPARISON: Chest dated May 23, 2023. FINDINGS: The lungs are clear and expanded. There is no demonstrated pleural abnormality. Stable borderline cardiomegaly. Normal mediastinum and araceli. Normal visualized pulmonary arteries. Normal visualized aortic arch and descending thoracic aorta. Normal visualized thoracic spine. Normal visualized ribs, clavicles, and shoulders. No abnormality of the visualized soft tissue structures of the upper abdomen. RAD/Chest 1 View (Portable) IMPRESSION: Stable borderline cardiomegaly. No active or acute cardiopulmonary disease. Electronically Signed: Qasim Costa MD at 13:11 EDT ,
[2023-05-30 13:05] LABS: Absolute Lymphocyte Count 2.75 X10^3/uL (0.83-4.51); Absolute Neutrophil Count 4.8 X10^3/uL (2.0-7.7); Basophil# 0.04 X10^3/uL; Basophil% 0.5 % (0-1); Eosinophil# 0.17 X10^3/uL; Eosinophils% 2.1 % (0-5); Hematocrit 40.7 % (37-47); Hemoglobin 13.2 g/dL (12.0-15.0); Lymphocyte # 2.75 X10^3/ul (0.83-4.51); Lymphocyte % 33.5 % (19-41); Mean Corp Hgb Conc 32.4 g/dL (32-36); Mean Corpuscular Hgb 30.6 pg (27.0-32.0); Mean Corpuscular Volume 94.4 fL (81-99); Mean Platelet Vol. 9.6 fl (6.2-12.0); Monocyte# 0.39 X10^3/uL; Monocyte% 4.8 % (0-10); NRBC Flagged by Analyzer 0 % (0-5); Neutrophil # 4.83 X10^3/uL (2.7-7.7); Neutrophil % 58.7 % (47-70); Platelet Count 312 K/mm3 (150-450); RBC Distribution Width CV 14.6 % (11.6-14.6); RBC Distribution Width SD 50.6 fl (35.1-43.9); Red Blood Count 4.31 M/mm3 (4.2-5.4); White Blood Count 8.2 K/mm3 (4.4-11.0)
--- NOTE | 2023-05-30 13:07 | ED.VIS.CHEST ---
HPI History of Present Illness Chief Complaint: Chest Pain Informant: patient Onset/Context/Timing Onset: Weeks Activity at onset: gradual Timing: Continuous Quality: Positive for Dull Location: Left Chest Current Severity: Mild Maximum Severity: Mild Worsened By: Movement of Torso Relieved By: Remaining Still Associated Symptoms: Negative for Nausea, Vomiting, Diaphoresis, Dyspnea, Cough, Fever, Lightheadedness, Acid Reflux or Palpitations Narrative Narrative: 57-year-old female history of seizures. Presents today from the doctor's office after seeing the nurse practitioner states she had left-sided chest pain. States she has had this for 2 weeks. She was recently hospitalized to [facility] to have an extensive work-up for possible seizures versus other issues. She was in the hospital around 5 to 6 days. Was discharged around the seventh or eighth. She is at had this chest discomfort for weeks. Had it while she was in the hospital there. She denies any exertional chest pain. She denies any shortness of breath. No diaphoresis or nausea. Worse with movement of her chest. Tender to touch her left chest. Did not have any falls or trauma. Prior Similar Symptoms: Yes Recent Illness/Hospitalization: Yes CVD Risk Factors: Negative for Diabetes PE Risk Factors: Positive for Recent Immobilization; Negative for Recent Travel/Surgery, Prior DVT or PE, Cancer or OCP + Smoking + >/=35 TAD Risk Factors: Negative for Marfan's Syndrome [facility] Medical History Hx of gastroesophageal reflux (GERD) Hypertension Schizoaffective disorder Seizure disorder Home Medications famotidine 20 mg tablet 20 mg PO DAILY gerd 07/24/20 [History Last Taken 07/23/20] hydroxyzine HCl 50 mg tablet 50 mg PO QHS 07/24/20 [History Last Taken Unknown] sertraline 100 mg tablet 200 mg PO DAILY depression 07/24/20 [History Last Taken 07/23/20] ziprasidone HCl 40 mg capsule 40 mg PO DAILY depression 07/24/20 [History Last Taken 07/23/20] Clonazepam 1 tab PO QHS anxiety 11/14/20 [History Last Taken Unknown] amlodipine 2.5 mg tablet 1 tab PO DAILY HTN 11/14/20 [History Last Taken 10/30/21] lacosamide 150 mg tablet 150 mg PO BID seizures 11/14/20 [History Last Taken 10/30/21] gabapentin 300 mg capsule 300 mg PO TID 10/30/21 [History Last Taken 10/30/21] oxcarbazepine 300 mg tablet 600 mg PO BID seizures 10/30/21 [History Last Taken 10/30/21] hydrocodone-acetaminophen 5-325mg 5mg-325mg 1 tab PO Q6H PRN PRN Pain 3 days #10 TABLETS 05/08/23 [Rx Last Taken Unknown] penicillin V potassium 500 mg tablet 500 mg PO 4X/DAY #40 tabs 05/08/23 [Rx Last Taken Unknown] atorvastatin 40 mg tablet 40 mg PO DAILY cholesterol 05/30/23 [History Last Taken Unknown] chlorhexidine gluconate 0.12 % mouthwash 15 ml PO BID 05/30/23 [History Last Taken Unknown] clobazam 10 mg tablet 5 mg PO QHS seizures 05/30/23 [History Last Taken Unknown] ibuprofen 800 mg tablet 800 mg PO Q8H PRN pain 05/30/23 [History Last Taken Unknown] lansoprazole 30 mg capsule,delayed release 30 mg PO DAILY acid reflux 05/30/23 [History Last Taken Unknown] pramipexole 1 mg tablet 2 mg PO QHS parkinsons 05/30/23 [History Last Taken Unknown] zonisamide 100 mg capsule 100 mg PO Q8H seizures 05/30/23 [History Last Taken Unknown] Allergy/AdvReac Type Severity Reaction Status Date / Time No Known Allergies Allergy Verified 05/30/23 12:38 Social History Smoking Status: Current every day smoker tobacco type: cigarettes ROS ROS ED ROS Narrative Left chest wall pain. Review of Systems ROS Unobtainable: Denies due to encephalopathy Constitutional Constitutional ED: Denies chills or fever(s) Eyes Eyes: Reports none ENT ENT ED: Denies ear pain Cardiovascular Cardiovascular: Reports as per HPI and chest pain; Denies racing heartbeat Respiratory/Chest Respiratory/Chest: Denies cough or dyspnea Gastrointestinal Gastrointestinal: Denies abdominal pain, diarrhea, nausea or vomiting Genitourinary Genitourinary ED: Denies dysuria or hematuria Musculoskeletal Musculoskeletal: Denies arthralgias Integumentary Denies abscess Neurologic Neurologic: Denies headache(s) Psychiatric Psychiatric: Denies anxiety Endocrine Endocrinology: Denies cold intolerance Hematologic/Lymphatic Hematologic/Lymphatic: Denies easy bleeding or easy bruising Allergic/Immunologic Allergic/Immunologic ED: Denies mouth swelling, tongue swelling or urticaria EXAM Physical Exam Narrative Exam Narrative: Well-appearing 57-year-old female. Vital signs are stable afebrile. Pulse ox 97% on room air no hypoxia. She is in no distress. No one else present in room. H EENT exam unremarkable atraumatic. No facial droop. Neck nontender. Lungs clear to auscultation bilaterally. Heart regular rhythm rate about 60 no murmur. Chest wall has reproducible chest wall tenderness on the left. There is no ecchymosis or bruising. No subcu air or crepitance. No redness or warmth. No bony abnormality. Abdomen soft nontender. No peritoneal signs. Moving all 4 extremities. Calves are nontender without edema or cords. Equal symmetrical radial pulses. Neurologically she is awake and alert. Moving all 4 extremities. Answering questions following commands. Const Vital Signs: 05/30/23 12:34 05/30/23 12:42 05/30/23 12:57 Temperature 98.2 F Temperature Source Temporal Pulse Rate 59 L Respiratory Rate 17 Respiratory Effort Normal Non-Labored Blood Pressure 147/91 H Blood Pressure Mean 109 Pulse Ox 97 Oxygen Delivery Method Room Air Room Air 05/30/23 13:45 Temperature Temperature Source Pulse Rate 61 Respiratory Rate 18 Respiratory Effort Blood Pressure 121/73 H Blood Pressure Mean 89 Pulse Ox 97 Oxygen Delivery Method Room Air Positive well nourished, well developed and obese; Negative for cachectic, contractures or unkempt General Appearance ED: well developed and NAD; Negative for unkempt, cachectic, contractures or pallor Nutritional Appearance: obese; Negative for cachectic HEENT Reports moist mucous membranes; Denies dry mucous membranes normocephalic and atraumatic; Negative for trauma or tenderness Mouth ED: No dry mucous membranes Mouth: No dry mucous membranes Eyes PERRL and EOMs intact bilaterally General Eye ED: Negative for pale conjunctiva or scleral icterus Neck no lymphadenopathy, supple and no JVD General: Negative for tenderness Chest Wall inspection of chest normal; Negative for palpation of chest normal Chest Narrative: Reproducible chest wall pain on the left to palpation. This yearly no acute abnormality. No redness or warmth. No bruising. No bony deformity. Chest: tenderness Resp normal respiratory effort and clear to auscultation bilaterally Effort and Inspection: Negative for respiratory distress Auscultation: Negative for rales, rhonchi or wheezes Cardio regular rhythm, S2 normal heart sound and no murmurs; Negative for regular rate Rate: bradycardia Peripheral Pulses: pulses 2+ throughout GI normal to inspection, nondistended, normoactive bowel sounds, soft to palpation, non-tender, non-distended and no masses Back/Spine no CVA tenderness and no thoracic nor lumbar tenderness General Back: Negative for CVA tenderness Cervical Spine: Negative for cervical spine tenderness Extremity normal to inspection General Extremety ED: Negative for edema, pulses abnormal or tenderness General Extremity: Negative for edema or pulses abnormal Neuro oriented x3 and CN's II-XII intact bilaterally Sensorium / Orientation: awake, alert, oriented to person, oriented to place and oriented to time; Negative for confused, lethargic or stuporous Motor Exam: strength 5/5 throughout Psych mental status grossly normal Appearance: Negative for unkempt Attitude: No agitated Mood & Affect: Negative for depressed, anxious or tearful Skin no rashes or lesions noted and no wounds General Skin Exam: Negative for jaundice or pallor Rashes: No rashes noted Trauma: Negative for abrasion or laceration Heart Score History: Slightly/Non-Suspicious ECG: Normal Age: >45 - <65 years Risk Factors: 1 or 2 Risk Factors Troponin: </= Normal Limit Score: 2 MDM MDM MDM Narrative Medical decision making narrative: 57-year-old female left-sided chest pain. Appears to be reproducible. Otherwise exam is benign. She will undergo cardiac work-up. Repeat exam patient doing well at 2:25 PM. Exam unchanged. I did speak to the RANJANA at the physician's office that referred her in. Patient's had extensive work-up in the last several weeks end of the last several years for this speech issue. She is recently in the last 2 weeks had MRIs and MRAs of the brain including clinic main campus. She has had neurology evaluations. Did not have a specific cause. I do not think we need to work that up any further today. Her cardiac work-up is negative. The pain is also reproducible. She will be discharged home. Motrin for pain. Outpatient follow-up as needed. History & Record Review Discussion w/independent historian: Patient Additional record(s) reviewed:: Prior inpatient record, Prior outpatient record, Prior ED visit and Prior labs Lab Data Attestation: I reviewed the patient's lab results. Lab results narrative: CBC unremarkable. White count 8.2. H&H 13.2 and 40. Platelets 312. Chemistries unremarkable. Gap of 4. Normal BUN of 14 creatinine 0.9. Glucose 89. Troponin is 4. She has had this pain for days to weeks. We do not need a second troponin. Labs: Laboratory Results - last 24 hr 05/30/23 12:24 WBC 8.2 RBC 4.31 Hgb 13.2 Hct 40.7 MCV 94.4 MCH 30.6 MCHC 32.4 RDW Std Deviation 50.6 H RDW Coeff of Scottie 14.6 Plt Count 312 MPV 9.6 Immature Gran % (Auto) 0.400 Neut % (Auto) 58.7 Lymph % (Auto) 33.5 [place] % (Auto) 4.8 Eos % (Auto) 2.1 Baso % (Auto) 0.5 Absolute Neuts (auto) 4.8 Absolute Lymphs (auto) 2.75 Nucleated RBC % 0 Sodium 141 Potassium 4.2 Chloride 114 H Carbon Dioxide 23.0 Anion Gap 4 L BUN 14 Creatinine 0.92 Estim Creat Clear Calc 70.51 Est GFR (MDRD) Af Amer 81 Est GFR (MDRD) Non-Af 67 BUN/Creatinine Ratio 15.3 Glucose 89 Calcium 8.8 Troponin I High Sens 4 Radiography Chest X-Ray - ED: 1 View, Read by ED Physician, Heart, Lungs, Mediastinum, Bony Structures, No Acute Disease and Chronic Changes Diagnostic Testing: Clinical Impression(s) from Imaging Studies Chest X-Ray 05/30/23 13:00 IMPRESSION: Stable borderline cardiomegaly. No active or acute cardiopulmonary disease. Electronically Signed: Qasim Costa MD at 13:11 EDT , Chest x-ray, portable, single view shows no acute abnormality. Normal cardiac silhouette. Normal mediastinum. Normal lung shin. No acute bony abnormality. Interpreted by myself. Rhythm Strip Rhythm Strip: Sinus Rhythm Rate: 52 Ectopy: None EKG Initial EKG: Attestation: I personally reviewed and interpreted this EKG as follows: Interpretation: Sinus Rhythm and Sinus Bradycardia Comments: Sinus bradycardia rate of 52 no acute signs of NM or ischemia. Discharge Plan Triage Chief Complaint: Chest Pain ED Provider: Jayson Wallis Dx/Rx/DC Orders Clinical Impression: Acute chest wall pain Instructions: ED Chest Pain, Noncardiac Prescriptions: No Action sertraline 100 MG tablet 200 mg PO DAILY hydroxyzine HCl 50 MG tablet 50 mg PO QHS famotidine 20 MG tablet 20 mg PO DAILY ziprasidone HCl 40 mg capsule 40 mg PO DAILY Patient Comments: Take 1 capsule by mouth once a day amlodipine 2.5 MG tablet 1 tab PO DAILY lacosamide 150 MG tablet 150 mg PO BID Clonazepam 0.5 MG tablet 1 tab PO QHS oxcarbazepine 300 mg tablet 600 mg PO BID gabapentin 300 mg capsule 300 mg PO TID Patient Comments: Take 1 capsule by mouth three times daily for 30 days. penicillin V potassium 500 mg tablet 500 mg PO 4X/DAY Qty: 40 0RF hydrocodone-acetaminophen 5-325 mg tablet 1 tab PO Q6H PRN PRN (Reason: Pain) 3 Days Qty: 10 0RF pramipexole 1 mg tablet 2 mg PO QHS atorvastatin 40 mg tablet 40 mg PO DAILY ibuprofen 800 mg tablet 800 mg PO Q8H PRN (Reason: pain) zonisamide 100 mg capsule 100 mg PO Q8H lansoprazole 30 mg capsule,delayed release(DR/EC) 30 mg PO DAILY chlorhexidine gluconate 0.12 % mouthwash 15 ml PO BID clobazam 10 mg tablet 5 mg PO QHS Primary Care Provider: Jennifer Jones Referrals: Jennifer Jones MD [Primary Care Provider] - 1 Week if not improving Activity Restrictions/Additional Instructions: All your test today were unremarkable. EKG was normal. As was your chest x-ray. Blood work and heart enzymes are normal. This appears to be reproducible chest wall pain. Motrin for pain and inflammation. Follow-up with your doctor if not improving. Disposition Disposition: Home, Self Care
[2023-05-30 13:22] LABS: Anion Gap 4 (5-15); BUN 14 mg/dL (7-18); BUN/Creat Ratio 15.3 RATIO (10-20); Calcium,Total 8.8 mg/dL (8.5-10.1); Chloride 114 mmol/L (98-107); Creatinine, Serum 0.92 mg/dL (0.55-1.02); EST Glomerular Filtration Rate 67 mL/min (>60); Est Glom Filt Rate - Afr Amer 81 mL/min (>60); Estimated Creatinine Clearance 70.51 ml/min; Glucose 89 mg/dL (74-106); Potassium 4.2 mmol/L (3.5-5.1); Sodium Level 141 mmol/L (136-145); Troponin-I HS (w/2H Reflex) 4 pg/mL (3.0-54.0)
[2023-05-30] MEDS: Aspirin 81 MG TAB.CHEW 324 MG PO (13:44)
[2023-05-30 13:45] VITALS: BP 121/73; PULSE 61; RESP 18; O2SAT 97
--- NOTE | 2023-05-30 14:37 | ED.RN ---
PT ANGRY WITH THIS RN, STATES YA'LL ARE NASTY TO ME EVERY TIME I COME HERE. YOU GUYS NEED TO FIGURE OUT WHAT'S WRONG WITH ME AND YOU NEVER DO. THIS RN ATTEMPTED TO EXPLAIN THAT PT HAS HAD MULTIPLE WORK UPS BOTH HERE AND AT [facility], INCLUDING SEVERAL CT SCANS AND AN MRI. PT KEEPS INTERRUPTING THIS RN AND YELLING NO, NO, NO I DON'T WANT TO HEAR IT. THIS RN ATTEMPTED TO DISCUSS PT'S DISCHARGE PAPERWORK, HOWEVER PT IS ON HER PHONE.
[2023-05-30 15:01] LABS: Reflex Troponin-HS? (from REC) Y
--- NOTE | 2023-05-30 15:16 | CM.ED ---
Social Work SW introduced self and role to patient. Pt was being discharged and got upset about being sent home. Pt reports she should have been admitted. Pt has been medically seen and discharged. Pt indicates she feels like she has been treated poorly. Pt reports staying a week at [facility] and they should have found something but did not. Pt also indicates that they treated her poorly, broke her things, and gave her the wrong medicine. Pt reports they discharged her because she can pily them for giving her the wrong medication. Pt is difficult to understand and has slurred speech. Evidently patient has had numerous tests without explanation for her change in speech. SW provided emotional support. SW explained that medical care is not SW scope of practice and provided patient advocate card for her to talk someone regarding her medical treatment. Dora Garcia FIELD [employer], [employer]
== END 2023-05-30 14:42 | disposition home or self-care (01) ==
PROVIDERS: Emergency Provider Emergency Medicine; PCP Internal Medicine; Visit Provider Emergency Medicine
DX: R07.89 Other chest pain (principal); I10 Essential (primary) hypertension; F17.210 Nicotine dependence, cigarettes, uncomplicated; E66.9 Obesity, unspecified
CPT/HCPCS: 71045; 80048; 84484; 85025; 93005; 99285

== ENCOUNTER 2024-10-16 06:37 | Outpatient (RCR) | payer MEDICARE, MEDICAID, SELFPAY ==
--- NOTE | 2024-10-16 07:55 | HP.PTEVAL ---
Patient's Visit Information Visit Information Visit Information: RACHEAL DELVALLE is a 59 year old F referred to Physical Therapy by Dr. Jennifer Jones MD with a diagnosis of AMBULATORY DYSFUNCTION ,FOCAL EPILEPSY IN TEMPORAL LOBE ,ATAXIA,OA KNEE. Date of Evaluation: 10/16/24 Physical Therapist: Moiz Dutton PT, Cert MDT, OCS Visit Plan Frequency: 1 visist Plan: This patient has decrease endurance and weakness thus benefit from scooter . Patient scooter will optimize patients level of function in home and community. Power mobility will improve ability to participate MRADL's and willingness to use scooter in home.Patient has the the mental and physical capabilities to safely operate scooter. Subjective Subjective: This 59 y/o female presents to physical therapy with scooter evaluation with ambulatory dysfunction. Patient has multiple comorbities to influence condition. Patient has no recent falls . Patient has limitations with decrease endurance and weakness with walking distances with bilateral knee replacement . Patient lives with daughter and son. Patient lives in 2 story home with 4 steps with rail. Tub/shower. Patient is able to care for self bathing/dressing. Patient daughter does cooking/cleaning. C/O paresthesia/tingling. Patient has difficulty sleeping. Patient condition affects ability in need of scooter. SOCIAL: disability Pain Bilateral Knee: Pain Intensity (Out of 10): 8 Pain Intensity Range: 10 Shoulder: Pain Intensity (Out of 10): 8 Pain Intensity Range: N/A Objective Objective: POSTURE: mild forward posture GAIT: reciprocal pattern ~ 200 ft then needs rest Spo2: 99% ,HR 73 BUE: limited to ~ 140 shoulder flexion /abduction otherwise WFL FLEXABILITY: hamstring MMT: quads/hamstring 4-/5,hip flexion/hip abd 4-/5 ,ankle 4/5 ,BUE grossly 4-/5 ,shoulders 3+/5 FLEXABILITY: hamstrings min tight LUMBAR ROM: min loss ,extension ,flexion min loss ,side glide min WFL STAIRS: one step at time with rails Balance/Special Test Scores CATSIB Score (Max score 120 seconds): 90 Goals Goal 1:: Patient will benefit from scooter to maximize function. Goal Time Frame: 1 Week Rehabilitation Potential Physical Therapy Diagnosis: This patient has decrease endurance and weakness thus benefit from scooter . Patient scooter will optimize patients level of function in home and community. Power mobility will improve ability to participate MRADL's and willingness to use scooter in home.Patient has the the mental and physical capabilities to safely operate scooter. Rehabilitation Potential: Fair Anticipated Interventions Patient/Client Instruction: Educate patient on: Condition and Plan of Care For the Purpose of:: Other Other: scooter Text: Thank you for the opportunity to evaluate your patient. For Medicare and Medicare HMO plans, please review the plan of care and approve it. It will need to be FAXED BACK to us at [phone] for Medicare purposes. For Medicare only, by signing this I certify the plan of care. Please let me know if there are questions or concerns regarding this plan of care. Physician Signature: Date:
== END 2024-10-16 19:00 | disposition home or self-care (01) ==
LOC: PT 06:37
PROVIDERS: PCP Internal Medicine; Referring Provider Internal Medicine; Visit Provider Internal Medicine
DX: M17.0 Bilateral primary osteoarthritis of knee (principal); R26.2 Difficulty in walking, not elsewhere classified; G40.109 Localization-related (focal) (partial) symptomatic epilepsy and epileptic syndromes with simple partial seizures, not intractable, without status epilepticus; R27.0 Ataxia, unspecified; R06.09 Other forms of dyspnea
CPT/HCPCS: 97162